=== PATIENT | male | born 1945 | race Caucasian/White ===

== ENCOUNTER → 2016-06-22 | Outpatient (REF) | payer MEDICARE, MEDICAID ==
[~2016-06-22] MED LIST: ALLO10TA PO; AMOX875T2 PO; ATEN25TA PO; ATEN50TA2 PO; BACITAB3 PO; CALC1TAB17 PO; CIPR-250 PO; CIPR500T3 PO; CIPR500T89 PO; DOCU100C PO; DULC10SU2 PR; ENEMENE3 PR; FLAG500T PO; FURO20TA2 PO; KLOR1TAB77 PO; LEVO100T5 PO; LEVO125T41 PO; MEGA40SU PO; MEGA625S PO; METR500T10 PO; MILKSUS PO; MIRT15TA3 PO; MULTCAP PO; OCUVTAB PO; OYST500T94 PO; POTA10CA PO; PRESCAP PO; SENN8.6T7 PO; SERO1TAB3 PO; TRIC145T PO; VITA100066 PO; VITA100072 PO; VITA2000 PO; VITMTA PO; WARF05TA PO; WARF4TAB52 PO; [UNRECOGNIZED DRUG - CODE] PO
[2016-06-22 13:03] LABS: CALCIUM LEVEL 8.5 MG/DL (8.8-10.2); CREATININE FOR GFR 1.39 MG/DL (0.70-1.30); GLOMERULAR FILTRATION RATE 53.5 (>42); POTASSIUM SERUM 3.7 MEQ/L (3.5-5.1)
== END ==
PROVIDERS: ATTEND Internal Medicine
DX: I50.9 Heart failure, unspecified (principal)

== ENCOUNTER → 2016-06-24 | Outpatient (CLI) | payer MEDICARE, MEDICAID ==
--- NOTE | 2016-06-24 18:12 | REP ---
CT abdomen and pelvis without contrast, 06/24/2016: Indication: Right upper quadrant pain. Comparison: CT abdomen and pelvis 06/17/2016 with IV contrast, 06/08/2016. Findings: There are bilateral pleural effusions, small on the right and small to moderate on the left. There is some bibasilar compressive atelectasis and right middle lobe with infiltrate, improved when compared with 06/08/2016. Liver, spleen and pancreas is normal. There are multiple stones within the gallbladder lumen. Gallbladder is contracted. There is no biliary dilatation. Adrenal glands are normal. Kidneys are without hydronephrosis. There is an exophytic 9 mm cyst off the posterior aspect of the left kidney. Cardiac silhouette is mildly enlarged. Diffuse atherosclerotic changes are noted in the aorta and iliac arteries. There are no pathologically enlarged retroperitoneal nodes. There is a supraumbilical hernia associated with diastases of the abdominal rectus muscles at the L3 level. There is diastases of the abdominis rectus muscles by 8.6 cm transverse dimension. Some anterior protrusion of the mid transverse colon into the area of stasis of the abdominis rectus muscles is noted , yet no obstruction. There has been previous right hemicolectomy with an ileocolic anastomosis in the right upper quadrant which is patent. Bladder is contracted. Prostate is not enlarged. There is no colonic obstruction. Previous inflammatory changes within the sigmoid colon are improved. However, there is some persistent linear scarring within the mesentery on image 98 series 201. Impression: Contracted gallbladder with cholelithiasis, not significantly changed. Diastases of the abdominis rectus muscles in the midline lower abdomen in the supraumbilical location. This is associated with some ventral protrusion of mid transverse colon, which is not obstructed. Prior right hemicolectomy. Patent ileocolic anastomosis. Previous inflammatory changes within the sigmoid colon are improved. There does remain some stranding/ inflammationi and/or scarring within the sigmoid mesentery on image 98, series 201. Persistent bilateral pleural effusions, small to moderate on the left, and small on right. Bibasilar atelectatic changes and/or infiltrate; right middle lobe infiltrate is improved. Signed by Elida Barber MD 06/28/2016 08:20 P
== END ==
LOC: M RAD 15:30
PROVIDERS: ATTEND Internal Medicine
DX: R10.31 Right lower quadrant pain (principal)

== ENCOUNTER 2016-06-26 14:48 | Emergency (ER) | payer MEDICARE, MEDICAID ==
[2016-06-26 15:32] LABS: BASO % 0.4 % (0.0-1.0); EOS # 0.2 K/mm3 (0.0-0.50); EOS % 1.7 % (0.0-3.0); LARGE UNSTAINED CELL # 0.4 K/mm3 (0.0-0.4); LARGE UNSTAINED CELL % 3.5 % (0.0-4.0); LYMPH # 1.2 K/mm3 (1.5-4.5); LYMPH % 12.4 % (24.0-44.0); MEAN CORPUSCULAR HEMOGLOBIN 32.9 pg (27.0-33.0); MEAN CORPUSCULAR HGB CONC 33.7 g/dl (32.0-36.5); MEAN CORPUSCULAR VOLUME 97.5 fl (80.0-96.0); MONO # 0.9 K/mm3 (0.0-0.8); NEUTROPHILS # 7.3 K/mm3 (1.8-7.7); NEUTROPHILS % 73.1 % (36.0-66.0); PLATELET COUNT, AUTOMATED 299 k/mm3 (150-450)
[2016-06-26 15:59] LABS: ALBUMIN/GLOBULIN RATIO 0.63 (1.00-1.93); BILIRUBIN,DIRECT 0.2 MG/DL (0.0-0.2); BILIRUBIN,TOTAL 0.8 MG/DL (0.2-1.0); CREATININE FOR GFR 1.48 MG/DL (0.70-1.30); GLOMERULAR FILTRATION RATE 49.7 (>42); POTASSIUM SERUM 3.8 MEQ/L (3.5-5.1); TOTAL PROTEIN 7.8 GM/DL (6.4-8.2)
[2016-06-26] MEDS ORDERED: CARVedilol 6.25 MG TAB As Ordered ONE (16:56)
--- NOTE | 2016-06-26 17:58 | EDDOCDS ---
Physician Documentation [facility] Name: Shahram King Age: 71 yrs Sex: Male : 1945 Arrival Date: 06/26/2016 Time: 14:48 Bed 10 Private MD: Salma Marquez E Disposition: 06/26 16:44 Critical Care: Critical care not applicable. pc Disposition: 06/26/16 17:06 Discharged to Home/Self Care. Impression: Cholelithiasis - without cholecystitis, Chronic atrial fibrillation - with RVR, on anticoagulant, not on rate control medication. - Condition is Stable. - Discharge Instructions: Cholelithiasis. - Prescriptions for Coreg 3.125 mg Oral Tablet - take 1 tablet by ORAL route every 12 hours with food; 30 tablet. No fatty, oily or greasy foods. A strict low fat diet is advised. - Medication Reconciliation, Local Pharmacy Hours form. - Follow up: Salma Marquez DO; When: 4 - 5 days; Reason: Recheck today's complaints, Continuance of care. Follow up: Timo Solano MD; When: Call to arrange an appointment; Reason: Recheck today's complaints, Continuance of care. - Problem is an ongoing problem. - Symptoms are unchanged. HPI: 15:15 This 71 yrs old Male presents to ER via Ambulance with complaints of pc Abdominal Pain. 15:15 The history is obtained from the patient, PCP. The patient presents with abdominal pc pain, in the right upper quadrant, right lower quadrant. The symptoms began recurrent over many months, with a recent US showing multiple gallstones and wall thickening, possible chronic cholecystitis. He was sent by his PCP for admission due to a lack of oral intake and recurrent pain. He has not had any fevers and is denying pain currently . The patient has been recently seen by Dr. Marquez. Historical: - Allergies: no known allergies; - Home Meds: 1. mirtazapine 15 mg Oral TbDL 1 tab nightly 2. Bacid 1 billion-250 cell-mg oral tab 1 cap twice a day 3. Vitamin D Oral 2000 unit twice a day 4. Oyster Shell Calcium 500 500 mg calcium (1,250 mg) Oral tab 1 tab twice a day 5. levothyroxine 125 mcg Oral cap 1 cap once daily 6. allopurinol 100 mg Oral tab 1 tab once daily 7. multivitamin Oral tab 1 tab daily 8. potassium chloride 10 mEq Oral cpER 1 cap once daily 9. Vitamin B-12 1,000 mcg Oral TbER daily 10. hyoscyamine sulfate 0.125 mg SL subl twice a day 11. Xarelto 20 mg oral tab 1 tab once daily 12. Flagyl 500 mg Oral tab 1 tab 3 times per day 13. Cipro 500 mg Oral tab 1 tab every 12 hours 14. furosemide 40 mg oral tab 1 tab once daily 15. megestrol 400 mg/10 mL (40 mg/mL) Oral susp 10 mL once daily 16. acetaminophen 325 mg Oral tab 2 tabs every 4 hours as needed 17. Milk of Magnesia Oral 10 mL as needed 18. Colace 100 mg oral cap 1 cap nightly 19. Dulcolax (bisacodyl) 10 mg Rectal supp 1 suppository once daily as needed - PMHx: Alcoholism; Atrial Fib; Bipolar disorder; CHF; CKD stage 3; Colitis; Dementia; Diverticulosis; GERD; hyperlipidemia; Hypertension; Hypothyroidism; - PSHx: Appendectomy; - The history from nurses notes was reviewed: and I agree with what is documented. - Social history: Smoking status: Patient states former smoker of tobacco. No barriers to communication noted, The patient speaks fluent Persian, Speaks appropriately for age. - Family history: Not pertinent. - : The pt / caregiver states he / she is on anticoagulants: Xarelto Home medication list is obtained from the facility AUG. - Hospitalizations: : No recent hospitalization is reported. - Exposure Risk Screening:: None identified. - Immunization history:: All immunizations up-to-date. - Social history:: the patient is a non-smoker, the patient formerly used alcohol. ROS: 15:15 All systems are negative except if listed. The constitutional, cardiovascular, pc respiratory and neurological components are also addressed in the HPI. Exam: 15:15 General Appearance: alert, no acute distress. pc 15:15 ENT: ear, nose and throat normal, pharynx normal. 15:15 Neck: The exam reveals no acute abnormalities. ROM is normal and painless. No nuchal rigidity is noted.. 15:15 Cardiovascular: normal heart sounds, equal and full pulses bilaterally, tachycardia, 105bpm, Rhythm is irregularly irregular. 15:15 Abdomen: soft, no organomegaly, normal bowel sounds, mild tenderness in the right upper quadrant. 15:15 Back: normal inspection. 15:15 Skin: skin color is normal, warm, dry. 15:15 Extremities: The extremities have a grossly normal appearance, are non-tender, without acute ROM abnormalities. 15:15 Neuro: oriented x 3, cranial nerves normal as tested, no motor deficits, no sensory deficits. 15:15 Psych: mood is normal. Vital Signs: 15:01 Pulse 128 MON; Pulse Ox 97% ; pml 15:01 BP 139 / 73 (auto/); pml 15:03 BP 158 / 87; Pulse 135; Resp 18; Temp 97.5(O); Pulse Ox 99% on R/A; Weight 78.47 kg / jrd 173 lbs (R); Height 65 in. (165.10 cm) (R); Pain 0/10; 15:31 Pulse 128 MON; Pulse Ox 97% ; pml 15:31 BP 130 / 67 (auto/); pml 16:01 Pulse 124 MON; Pulse Ox 97% ; pml 16:01 BP 114 / 61 (auto/); pml 16:31 Pulse 126 MON; Pulse Ox 97% ; pml 16:31 BP 101 / 58 (auto/); pml 17:50 BP 116 / 62; Pulse 126; Resp 18; Temp 97.5; Pulse Ox 96% ; Pain 0/10; pml 15:03 Body Mass Index 28.79 (78.47 kg, 165.10 cm) jrd MDM: 15:12 IV Saline Lock ordered. pc 15:13 CBC with Diff Ordered. EDMS 15:13 MED Profile Ordered. EDMS 15:13 Liver Profile Ordered. EDMS 15:13 Lipase Ordered. EDMS 15:15 Differential diagnosis: acute v chronic cholecystitis; alcoholism; Bipolar disorder. pc Plan: labs. 16:01 CBC with Diff Reviewed. pc 16:01 MED Profile Reviewed. pc 16:01 Liver Profile Reviewed. pc 16:01 Lipase Reviewed. pc 16:06 Data reviewed: old medical records, vital signs, nurses notes, lab test results, all pc radiology studies and available results. Test interpretation: LAB - all labs as ordered have been reviewed, interpreted and considered in the overall management of the clinical presentation;. The patient has been re-examined and re-evaluated. The clinical presentation did not require any ED treatment or interventions. ED course: He does not have a fever, does not have pain on repeat examination, has no WBC count elevation and his LFTs are normal. He does not require admission. The patient was sent for admission, as such, the Hospitalist service will be consulted, as they would be the ones to admit Dr. Marquez' patients. . 16:06 Physician consultation: Dr. Mt Sahni DO was contacted at 16:09, regarding consult.pc 16:40 carvedilol 3.125 mg PO once ordered. pc 16:41 Metoprolol 5 mg IVP every 5 minutes; Hold for SBP < 100 or HR < 60. x3 ordered. pc 16:44 ED course: Dr. Sahni evaluated the patient and has discussed the case with Dr. marcie Solano. He advises discharge home, an out-patient HIDA scan and follow up at his office. Disposition: The historical points, examination findings, and any diagnostic results supporting the provided diagnosis, were discussed with the patient or legal guardian. The need for outpatient follow up with the provider listed on their discharge instructions was discussed. They were encouraged to return to [facility], or the nearest ED, if symptoms worsen/persist, or for any other questions/concerns. 16:44 ED course: He is AFib with RVR. He is anticoagulated but is not on any rate control meds. He was on atenolol all of last year, as noted by his EMR. He was on atenolol at the end of January when discharged from [facility]. No other records on his EMR shows him to be still on it or why it was stopped. Dr. Sahni has advised Coreg at the dose administered . 16:53 Financial registration complete. zo 16:55 [facility] Payment Agreement was scanned into [employer] and attached to record. zo Administered Medications: 16:55 Not Given (Physician Discretion): Metoprolol 5 mg IVP every 5 minutes; Hold for SBP < pml 100 or HR < 60. x3 17:00 Drug: carvedilol 3.125 mg Route: PO; pml Signatures: Dispatcher [employer] EDMS Jose Raul Easton MD MD pc Olin, Zoeann zo Quay, Paulina, RN RN pml The chart was reviewed and I authenticate all verbal orders and agree with the evaluation and treatment provided.Attachments: 16:55 [facility] Payment Agreement zo MTDD
--- NOTE | 2016-06-26 17:58 | EDDOCDS ---
Nurse's Notes [facility] Name: Shahram King Age: 71 yrs Sex: Male : 1945 Arrival Date: 06/26/2016 Time: 14:48 Bed 10 Private MD: Salma Marquez E Diagnosis: Cholelithiasis-without cholecystitis;Chronic atrial fibrillation-with RVR, on anticoagulant, not on rate control medication Presentation: 06/26 14:56 Presenting complaint: EMS states: sent for eval by [facility] for positive finding on gall pml bladder ultrasound today. pt denies pain. Adult Sepsis Screening: The patient does not have new or worsening altered mentation. Patient's respiratory rate is less than 22. Systolic blood pressure is greater than 100. Patient has a qSOFA score of 0- Negative Sepsis Screen. Suicide/Homicide risk assessment- the patient denies having any suicidal and/or homicidal ideations and does not present with any other emotional, behavioral or mental health complaints. Status: Patient is not a cash register servicer or dependent. Transition of care: patient was not received from another setting of care. 14:56 Acuity: BARBIE Level 3 pml 14:56 Method Of Arrival: Ambulance pml Triage Assessment: 15:01 General: Appears in no apparent distress, comfortable, Behavior is appropriate for age, pml cooperative. Pain: Denies pain. The patient is triaged at the bedside. See Assessment in Nurses Notes section of ED record. Neurological: Level of Consciousness is awake, alert, Oriented to person, place, time. Cardiovascular: Capillary refill < 3 seconds. Respiratory: Airway is patent Respiratory effort is even, unlabored. GI: Abdomen is non- distended Abd is soft X 4 quads Guarding noted in right upper quadrant. Derm: Skin is pink, warm & dry. Historical: - Allergies: no known allergies; - Home Meds: 1. mirtazapine 15 mg Oral TbDL 1 tab nightly 2. Bacid 1 billion-250 cell-mg oral tab 1 cap twice a day 3. Vitamin D Oral 2000 unit twice a day 4. Oyster Shell Calcium 500 500 mg calcium (1,250 mg) Oral tab 1 tab twice a day 5. levothyroxine 125 mcg Oral cap 1 cap once daily 6. allopurinol 100 mg Oral tab 1 tab once daily 7. multivitamin Oral tab 1 tab daily 8. potassium chloride 10 mEq Oral cpER 1 cap once daily 9. Vitamin B-12 1,000 mcg Oral TbER daily 10. hyoscyamine sulfate 0.125 mg SL subl twice a day 11. Xarelto 20 mg oral tab 1 tab once daily 12. Flagyl 500 mg Oral tab 1 tab 3 times per day 13. Cipro 500 mg Oral tab 1 tab every 12 hours 14. furosemide 40 mg oral tab 1 tab once daily 15. megestrol 400 mg/10 mL (40 mg/mL) Oral susp 10 mL once daily 16. acetaminophen 325 mg Oral tab 2 tabs every 4 hours as needed 17. Milk of Magnesia Oral 10 mL as needed 18. Colace 100 mg oral cap 1 cap nightly 19. Dulcolax (bisacodyl) 10 mg Rectal supp 1 suppository once daily as needed - PMHx: Alcoholism; Atrial Fib; Bipolar disorder; CHF; CKD stage 3; Colitis; Dementia; Diverticulosis; GERD; hyperlipidemia; Hypertension; Hypothyroidism; - PSHx: Appendectomy; - The history from nurses notes was reviewed: and I agree with what is documented. - Social history: Smoking status: Patient states former smoker of tobacco. No barriers to communication noted, The patient speaks fluent Vietnamese, Speaks appropriately for age. - Family history: Not pertinent. - : The pt / caregiver states he / she is on anticoagulants: Xarelto Home medication list is obtained from the facility AUG. - Hospitalizations: : No recent hospitalization is reported. - Exposure Risk Screening:: None identified. - Immunization history:: All immunizations up-to-date. - Social history:: the patient is a non-smoker, the patient formerly used alcohol. Screenin:03 Screening information is obtained from the patient. Fall risk: No risks identified. pml Assistance ADL's: requires no assistance with activities of daily living. Abuse/DV Screen: The patient / caregiver reports he/she is: not in a situation that causes fear, pain or injury. Nutritional screening: No deficits noted. Advance Directives: Currently, there is a health care proxy, son. home support is adequate. Assessment: 15:03 General: see triage note. pml 16:20 General: Appears in no apparent distress, Behavior is appropriate for age, cooperative. pml Pain: Denies pain. Neurological: Level of Consciousness is awake, alert, Oriented to person, place, time. Cardiovascular: Capillary refill < 3 seconds. Respiratory: Airway is patent Respiratory effort is even, unlabored. GI: Abdomen is non- distended Bowel sounds present X 4 quads. Derm: Skin is pink, warm & dry. 17:49 General: Appears in no apparent distress, comfortable, Behavior is appropriate for age, pml cooperative. Pain: Denies pain. Neurological: Level of Consciousness is awake, alert, Oriented to person, place, time. Cardiovascular: Capillary refill < 3 seconds. Respiratory: Airway is patent Respiratory effort is even, unlabored. GI: Abdomen is non- distended. Derm: Skin is pink, warm & dry. Vital Signs: 15:01 Pulse 128 MON; Pulse Ox 97% ; pml 15:01 BP 139 / 73 (auto/); pml 15:03 BP 158 / 87; Pulse 135; Resp 18; Temp 97.5(O); Pulse Ox 99% on R/A; Weight 78.47 kg jrd (R); Height 65 in. (165.10 cm) (R); Pain 0/10; 15:31 Pulse 128 MON; Pulse Ox 97% ; pml 15:31 BP 130 / 67 (auto/); pml 16:01 Pulse 124 MON; Pulse Ox 97% ; pml 16:01 BP 114 / 61 (auto/); pml 16:31 Pulse 126 MON; Pulse Ox 97% ; pml 16:31 BP 101 / 58 (auto/); pml 17:50 BP 116 / 62; Pulse 126; Resp 18; Temp 97.5; Pulse Ox 96% ; Pain 0/10; pml 15:03 Body Mass Index 28.79 (78.47 kg, 165.10 cm) [facility] Vitals: 15:01 Log In Time N/A - ambulance arrival. pml ED Course: 14:49 Patient visited by Elma Jorgensen, Ward Assistant. lbd 14:49 Salam Marquez is Private Physician. lbd 14:49 Patient moved to Waiting lbd 14:49 Patient moved to 10 lbd 14:57 Triage Initiated pml 15:03 The patient / caregiver is instructed regarding the plan of care and ED course. Patient pml has correct armband on for positive identification. Bed in low position. Call light in reach. 15:04 Patient visited by Rico Wagner PCA. jrd 15:06 Patient visited by Sapphire Bird RN. pml 15:09 Patient visited by Sapphire Bird RN. pml 15:11 Jose Raul Easton MD is Attending Physician. pc 15:11 Patient visited by Jose Raul Easton MD. pc 15:21 Patient visited by Sapphire Bird RN. pml 15:21 Inserted peripheral IV: 20gauge IV in left antecubital area and blood collected. pml Patient tolerated the procedure well. 16:37 Patient visited by Sapphire Bird RN. pml 16:55 [facility] Payment Agreement was scanned into [employer] and attached to record. zo 17:05 Salma Marquez DO is Referral Physician. pc 17:05 Timo Solano MD is Referral Physician. pc 17:50 Discontinued lock intact, bleeding controlled, pressure dressing applied, No pml redness/swelling at site. No procedures done that require assistance. Administered Medications: 16:55 Not Given (Physician Discretion): Metoprolol 5 mg IVP every 5 minutes; Hold for SBP < pml 100 or HR < 60. x3 17:00 Drug: carvedilol 3.125 mg Route: PO; [facility] Order Results: Lab Order: CBC with Diff; SPEC'M 06/26/16 15:19 Test: WHITE BLOOD COUNT; Value: 10.0; Range: 4.0-10.0; Units: K/mm3; Status: F Test: RED BLOOD COUNT; Value: 4.74; Range: 4.30-6.10; Units: M/mm3; Status: F Test: HEMOGLOBIN; Value: 15.6; Range: 14.0-18.0; Units: g/dl; Status: F Test: HEMATOCRIT; Value: 46.2; Range: 42.0-52.0; Units: %; Status: F Test: MEAN CORPUSCULAR VOLUME; Value: 97.5; Range: 80.0-96.0; Abnormal: Above high normal; Units: fl; Status: F Test: MEAN CORPUSCULAR HEMOGLOBIN; Value: 32.9; Range: 27.0-33.0; Units: pg; Status: F Test: MEAN CORPUSCULAR HGB CONC; Value: 33.7; Range: 32.0-36.5; Units: g/dl; Status: F Test: RED CELL DISTRIBUTION WIDTH; Value: 14.0; Range: 11.5-14.5; Units: %; Status: F Test: PLATELET COUNT, AUTOMATED; Value: 299; Range: 150-450; Units: k/mm3; Status: F Test: NEUTROPHILS %; Value: 73.1; Range: 36.0-66.0; Abnormal: Above high normal; Units: %; Status: F Test: LYMPH %; Value: 12.4; Range: 24.0-44.0; Abnormal: Below low normal; Units: %; Status: F Test: MONO %; Value: 9.0; Range: 0.0-5.0; Abnormal: Above high normal; Units: %; Status: F Test: EOS %; Value: 1.7; Range: 0.0-3.0; Units: %; Status: F Test: BASO %; Value: 0.4; Range: 0.0-1.0; Units: %; Status: F Test: LARGE UNSTAINED CELL %; Value: 3.5; Range: 0.0-4.0; Units: %; Status: F Test: NEUTROPHILS #; Value: 7.3; Range: 1.8-7.7; Units: K/mm3; Status: F Test: LYMPH #; Value: 1.2; Range: 1.5-4.5; Abnormal: Below low normal; Units: K/mm3; Status: F Test: MONO #; Value: 0.9; Range: 0.0-0.8; Abnormal: Above high normal; Units: K/mm3; Status: F Test: EOS #; Value: 0.2; Range: 0.0-0.50; Units: K/mm3; Status: F Test: BASO #; Value: 0.0; Range: 0.0-0.2; Units: K/mm3; Status: F Test: LARGE UNSTAINED CELL #; Value: 0.4; Range: 0.0-0.4; Units: K/mm3; Status: F Lab Order: MED Profile; SPEC'M 06/26/16 15:19 Test: GLUCOSE, FASTING; Value: 129; Range: 83-110; Abnormal: Above high normal; Units: MG/DL; Status: F Test: BLOOD UREA NITROGEN; Value: 11; Range: 7-18; Units: MG/DL; Status: F Test: CREATININE FOR GFR; Value: 1.48; Range: 0.70-1.30; Abnormal: Above high normal; Units: MG/DL; Status: F Test: GLOMERULAR FILTRATION RATE; Value: 49.7; Range: >42; Status: F Test: SODIUM LEVEL; Value: 138; Range: 136-145; Units: MEQ/L; Status: F Test: POTASSIUM SERUM; Value: 3.8; Range: 3.5-5.1; Units: MEQ/L; Status: F Test: CHLORIDE LEVEL; Value: 104; Range: 98-107; Units: MEQ/L; Status: F Test: CARBON DIOXIDE LEVEL; Value: 21; Range: 21-32; Units: MEQ/L; Status: F Test: ANION GAP; Value: 13; Range: 8-16; Units: MEQ/L; Status: F Test: CALCIUM LEVEL; Value: 9.0; Range: 8.8-10.2; Units: MG/DL; Status: F Test Note: ; Units are mL/min/1.73 m2 Chronic Kidney Disease Staging per NKF: Stage I & II GFR >=60 Normal to Mildly Decreased Stage III GFR 30-59 Moderately Decreased Stage IV GFR 15-29 Severely Decreased Stage V GFR <15 Very Little GFR Left ESRD GFR <15 on UNIT AIDE Lab Order: Liver Profile; DASHAWN'Viviana 06/26/16 15:19 Test: AST/SGOT; Value: 26; Range: 15-37; Units: U/L; Status: F Test: ALT/SGPT; Value: 16; Range: 12-78; Units: U/L; Status: F Test: ALKALINE PHOSPHATASE; Value: 54; Range: 45-117; Units: U/L; Status: F Test: BILIRUBIN,TOTAL; Value: 0.8; Range: 0.2-1.0; Units: MG/DL; Status: F Test: BILIRUBIN,DIRECT; Value: 0.2; Range: 0.0-0.2; Units: MG/DL; Status: F Test: TOTAL PROTEIN; Value: 7.8; Range: 6.4-8.2; Units: GM/DL; Status: F Test: ALBUMIN; Value: 3.0; Range: 3.2-5.2; Abnormal: Below low normal; Units: GM/DL; Status: F Test: ALBUMIN/GLOBULIN RATIO; Value: 0.63; Range: 1.00-1.93; Abnormal: Below low normal; Status: F Lab Order: Lipase; SPEC'M 06/26/16 15:19 Test: LIPASE; Value: 157; Range: 73-393; Units: U/L; Status: F Outcome: 17:06 Discharge ordered by Provider. 17:50 Discharge Assessment: Patient awake, alert and oriented x 3. No cognitive and/or pml functional deficits noted. Patient verbalized understanding of disposition instructions. patient administered narcotics - no. The following High Risk Discharge criteria are identified: None. Discharged to senior care. 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 Condition: stable. Discharge instructions given to senior care, Instructed on discharge instructions, follow up and referral plans. medication usage, Demonstrated understanding of instructions, medications, Pt was receptive of discharge instructions/ teaching. Prescriptions given X 1. No special radiology studies were completed. Property sent home with patient. 17:56 Patient left the ED. pml Signatures: Jose Raul Easton MD MD pc Elma Jorgensne, Ward Assistant Unit lbd Sharona Flores Paulina,RN RN pml Rico Wagner, PROCESS DESIGN ENGINEER PROCESS DESIGN ENGINEER jrd Corrections: (The following items were deleted from the chart) 15:09 15:03 Advance Directives: Currently, there is no health care proxy. pml pml MTDD
--- NOTE | 2016-06-30 09:36 | EDDOCDS ---
Physician Documentation [facility] Name: Shahram King Age: 71 yrs Sex: Male : 1945 Arrival Date: 06/26/2016 Time: 14:48 Bed 10 Private MD: Salma Marquez E Disposition: 06/26 16:44 Critical Care: Critical care not applicable. pc Disposition: 06/26/16 17:06 Discharged to Home/Self Care. Impression: Cholelithiasis - without cholecystitis, Chronic atrial fibrillation - with RVR, on anticoagulant, not on rate control medication. - Condition is Stable. - Discharge Instructions: Cholelithiasis. - Prescriptions for Coreg 3.125 mg Oral Tablet - take 1 tablet by ORAL route every 12 hours with food; 30 tablet. No fatty, oily or greasy foods. A strict low fat diet is advised. - Medication Reconciliation, Local Pharmacy Hours form. - Follow up: Salma Marquez DO; When: 4 - 5 days; Reason: Recheck today's complaints, Continuance of care. Follow up: Timo Solano MD; When: Call to arrange an appointment; Reason: Recheck today's complaints, Continuance of care. - Problem is an ongoing problem. - Symptoms are unchanged. HPI: 15:15 This 71 yrs old Male presents to ER via Ambulance with complaints of pc Abdominal Pain. 15:15 The history is obtained from the patient, PCP. The patient presents with abdominal pc pain, in the right upper quadrant, right lower quadrant. The symptoms began recurrent over many months, with a recent US showing multiple gallstones and wall thickening, possible chronic cholecystitis. He was sent by his PCP for admission due to a lack of oral intake and recurrent pain. He has not had any fevers and is denying pain currently . The patient has been recently seen by Dr. Marquez. Historical: - Allergies: no known allergies; - Home Meds: 1. mirtazapine 15 mg Oral TbDL 1 tab nightly 2. Bacid 1 billion-250 cell-mg oral tab 1 cap twice a day 3. Vitamin D Oral 2000 unit twice a day 4. Oyster Shell Calcium 500 500 mg calcium (1,250 mg) Oral tab 1 tab twice a day 5. levothyroxine 125 mcg Oral cap 1 cap once daily 6. allopurinol 100 mg Oral tab 1 tab once daily 7. multivitamin Oral tab 1 tab daily 8. potassium chloride 10 mEq Oral cpER 1 cap once daily 9. Vitamin B-12 1,000 mcg Oral TbER daily 10. hyoscyamine sulfate 0.125 mg SL subl twice a day 11. Xarelto 20 mg oral tab 1 tab once daily 12. Flagyl 500 mg Oral tab 1 tab 3 times per day 13. Cipro 500 mg Oral tab 1 tab every 12 hours 14. furosemide 40 mg oral tab 1 tab once daily 15. megestrol 400 mg/10 mL (40 mg/mL) Oral susp 10 mL once daily 16. acetaminophen 325 mg Oral tab 2 tabs every 4 hours as needed 17. Milk of Magnesia Oral 10 mL as needed 18. Colace 100 mg oral cap 1 cap nightly 19. Dulcolax (bisacodyl) 10 mg Rectal supp 1 suppository once daily as needed - PMHx: Alcoholism; Atrial Fib; Bipolar disorder; CHF; CKD stage 3; Colitis; Dementia; Diverticulosis; GERD; hyperlipidemia; Hypertension; Hypothyroidism; - PSHx: Appendectomy; - The history from nurses notes was reviewed: and I agree with what is documented. - Social history: Smoking status: Patient states former smoker of tobacco. No barriers to communication noted, The patient speaks fluent Turkmen, Speaks appropriately for age. - Family history: Not pertinent. - : The pt / caregiver states he / she is on anticoagulants: Xarelto Home medication list is obtained from the facility [facility]. - Hospitalizations: : No recent hospitalization is reported. - Exposure Risk Screening:: None identified. - Immunization history:: All immunizations up-to-date. - Social history:: the patient is a non-smoker, the patient formerly used alcohol. ROS: 15:15 All systems are negative except if listed. The constitutional, cardiovascular, pc respiratory and neurological components are also addressed in the HPI. Exam: 15:15 General Appearance: alert, no acute distress. pc 15:15 ENT: ear, nose and throat normal, pharynx normal. 15:15 Neck: The exam reveals no acute abnormalities. ROM is normal and painless. No nuchal rigidity is noted.. 15:15 Cardiovascular: normal heart sounds, equal and full pulses bilaterally, tachycardia, 105bpm, Rhythm is irregularly irregular. 15:15 Abdomen: soft, no organomegaly, normal bowel sounds, mild tenderness in the right upper quadrant. 15:15 Back: normal inspection. 15:15 Skin: skin color is normal, warm, dry. 15:15 Extremities: The extremities have a grossly normal appearance, are non-tender, without acute ROM abnormalities. 15:15 Neuro: oriented x 3, cranial nerves normal as tested, no motor deficits, no sensory deficits. 15:15 Psych: mood is normal. Vital Signs: 15:01 Pulse 128 MON; Pulse Ox 97% ; pml 15:01 BP 139 / 73 (auto/); pml 15:03 BP 158 / 87; Pulse 135; Resp 18; Temp 97.5(O); Pulse Ox 99% on R/A; Weight 78.47 kg / jrd 173 lbs (R); Height 65 in. (165.10 cm) (R); Pain 0/10; 15:31 Pulse 128 MON; Pulse Ox 97% ; pml 15:31 BP 130 / 67 (auto/); pml 16:01 Pulse 124 MON; Pulse Ox 97% ; pml 16:01 BP 114 / 61 (auto/); pml 16:31 Pulse 126 MON; Pulse Ox 97% ; pml 16:31 BP 101 / 58 (auto/); pml 17:50 BP 116 / 62; Pulse 126; Resp 18; Temp 97.5; Pulse Ox 96% ; Pain 0/10; pml 15:03 Body Mass Index 28.79 (78.47 kg, 165.10 cm) jrd MDM: 15:12 IV Saline Lock ordered. pc 15:13 CBC with Diff Ordered. EDMS 15:13 MED Profile Ordered. EDMS 15:13 Liver Profile Ordered. EDMS 15:13 Lipase Ordered. EDMS 15:15 Differential diagnosis: acute v chronic cholecystitis; alcoholism; Bipolar disorder. pc Plan: labs. 16:01 CBC with Diff Reviewed. pc 16:01 MED Profile Reviewed. pc 16:01 Liver Profile Reviewed. pc 16:01 Lipase Reviewed. pc 16:06 Data reviewed: old medical records, vital signs, nurses notes, lab test results, all pc radiology studies and available results. Test interpretation: LAB - all labs as ordered have been reviewed, interpreted and considered in the overall management of the clinical presentation;. The patient has been re-examined and re-evaluated. The clinical presentation did not require any ED treatment or interventions. ED course: He does not have a fever, does not have pain on repeat examination, has no WBC count elevation and his LFTs are normal. He does not require admission. The patient was sent for admission, as such, the Hospitalist service will be consulted, as they would be the ones to admit Dr. Marquez' patients. . 16:06 Physician consultation: Dr. Mt Sahni DO was contacted at 16:09, regarding consult.pc 16:40 carvedilol 3.125 mg PO once ordered. pc 16:41 Metoprolol 5 mg IVP every 5 minutes; Hold for SBP < 100 or HR < 60. x3 ordered. pc 16:44 ED course: Dr. Sahni evaluated the patient and has discussed the case with Dr. marcie Solano. He advises discharge home, an out-patient HIDA scan and follow up at his office. Disposition: The historical points, examination findings, and any diagnostic results supporting the provided diagnosis, were discussed with the patient or legal guardian. The need for outpatient follow up with the provider listed on their discharge instructions was discussed. They were encouraged to return to [facility], or the nearest ED, if symptoms worsen/persist, or for any other questions/concerns. 16:44 ED course: He is AFib with RVR. He is anticoagulated but is not on any rate control pc meds. He was on atenolol all of last year, as noted by his EMR. He was on atenolol at the end of January when discharged from [facility]. No other records on his EMR shows him to be still on it or why it was stopped. Dr. Sahni has advised Coreg at the dose administered . 16:53 Financial registration complete. zo 16:55 [facility] [place] Agreement was scanned into [employer] and attached to record. zo 06/27 11:39 Other: PROGRESS NOTE was scanned into [employer] and attached to record. gb Administered Medications: 06/26 16:55 Not Given (Physician Discretion): Metoprolol 5 mg IVP every 5 minutes; Hold for SBP < pml 100 or HR < 60. x3 17:00 Drug: carvedilol 3.125 mg Route: PO; pml Signatures: Dispatcher [employer] EDMS Jose Raul Easton MD MD pc Barnhardt, Gloria, Sharona Rendon Paulina, RN RN pml The chart was reviewed and I authenticate all verbal orders and agree with the evaluation and treatment provided.Attachments: 16:55 [facility] Payment Agreement zo Chart Complete MTDD
--- NOTE | 2016-06-30 09:36 | EDDOCDS ---
Physician Documentation [facility] Name: Shahram King Age: 71 yrs Sex: Male : 1945 Arrival Date: 06/26/2016 Time: 14:48 Bed 10 Private MD: Salma Marquez E Disposition: 06/26 16:44 Critical Care: Critical care not applicable. pc Disposition: 06/26/16 17:06 Discharged to Home/Self Care. Impression: Cholelithiasis - without cholecystitis, Chronic atrial fibrillation - with RVR, on anticoagulant, not on rate control medication. - Condition is Stable. - Discharge Instructions: Cholelithiasis. - Prescriptions for Coreg 3.125 mg Oral Tablet - take 1 tablet by ORAL route every 12 hours with food; 30 tablet. No fatty, oily or greasy foods. A strict low fat diet is advised. - Medication Reconciliation, Local Pharmacy Hours form. - Follow up: Salma Marquez DO; When: 4 - 5 days; Reason: Recheck today's complaints, Continuance of care. Follow up: Timo Solano MD; When: Call to arrange an appointment; Reason: Recheck today's complaints, Continuance of care. - Problem is an ongoing problem. - Symptoms are unchanged. HPI: 15:15 This 71 yrs old Male presents to ER via Ambulance with complaints of pc Abdominal Pain. 15:15 The history is obtained from the patient, PCP. The patient presents with abdominal pc pain, in the right upper quadrant, right lower quadrant. The symptoms began recurrent over many months, with a recent US showing multiple gallstones and wall thickening, possible chronic cholecystitis. He was sent by his PCP for admission due to a lack of oral intake and recurrent pain. He has not had any fevers and is denying pain currently . The patient has been recently seen by Dr. Marquez. Historical: - Allergies: no known allergies; - Home Meds: 1. mirtazapine 15 mg Oral TbDL 1 tab nightly 2. Bacid 1 billion-250 cell-mg oral tab 1 cap twice a day 3. Vitamin D Oral 2000 unit twice a day 4. Oyster Shell Calcium 500 500 mg calcium (1,250 mg) Oral tab 1 tab twice a day 5. levothyroxine 125 mcg Oral cap 1 cap once daily 6. allopurinol 100 mg Oral tab 1 tab once daily 7. multivitamin Oral tab 1 tab daily 8. potassium chloride 10 mEq Oral cpER 1 cap once daily 9. Vitamin B-12 1,000 mcg Oral TbER daily 10. hyoscyamine sulfate 0.125 mg SL subl twice a day 11. Xarelto 20 mg oral tab 1 tab once daily 12. Flagyl 500 mg Oral tab 1 tab 3 times per day 13. Cipro 500 mg Oral tab 1 tab every 12 hours 14. furosemide 40 mg oral tab 1 tab once daily 15. megestrol 400 mg/10 mL (40 mg/mL) Oral susp 10 mL once daily 16. acetaminophen 325 mg Oral tab 2 tabs every 4 hours as needed 17. Milk of Magnesia Oral 10 mL as needed 18. Colace 100 mg oral cap 1 cap nightly 19. Dulcolax (bisacodyl) 10 mg Rectal supp 1 suppository once daily as needed - PMHx: Alcoholism; Atrial Fib; Bipolar disorder; CHF; CKD stage 3; Colitis; Dementia; Diverticulosis; GERD; hyperlipidemia; Hypertension; Hypothyroidism; - PSHx: Appendectomy; - The history from nurses notes was reviewed: and I agree with what is documented. - Social history: Smoking status: Patient states former smoker of tobacco. No barriers to communication noted, The patient speaks fluent Korean, Speaks appropriately for age. - Family history: Not pertinent. - : The pt / caregiver states he / she is on anticoagulants: Xarelto Home medication list is obtained from the facility [facility]. - Hospitalizations: : No recent hospitalization is reported. - Exposure Risk Screening:: None identified. - Immunization history:: All immunizations up-to-date. - Social history:: the patient is a non-smoker, the patient formerly used alcohol. ROS: 15:15 All systems are negative except if listed. The constitutional, cardiovascular, pc respiratory and neurological components are also addressed in the HPI. Exam: 15:15 General Appearance: alert, no acute distress. pc 15:15 ENT: ear, nose and throat normal, pharynx normal. 15:15 Neck: The exam reveals no acute abnormalities. ROM is normal and painless. No nuchal rigidity is noted.. 15:15 Cardiovascular: normal heart sounds, equal and full pulses bilaterally, tachycardia, 105bpm, Rhythm is irregularly irregular. 15:15 Abdomen: soft, no organomegaly, normal bowel sounds, mild tenderness in the right upper quadrant. 15:15 Back: normal inspection. 15:15 Skin: skin color is normal, warm, dry. 15:15 Extremities: The extremities have a grossly normal appearance, are non-tender, without acute ROM abnormalities. 15:15 Neuro: oriented x 3, cranial nerves normal as tested, no motor deficits, no sensory deficits. 15:15 Psych: mood is normal. Vital Signs: 15:01 Pulse 128 MON; Pulse Ox 97% ; pml 15:01 BP 139 / 73 (auto/); pml 15:03 BP 158 / 87; Pulse 135; Resp 18; Temp 97.5(O); Pulse Ox 99% on R/A; Weight 78.47 kg / jrd 173 lbs (R); Height 65 in. (165.10 cm) (R); Pain 0/10; 15:31 Pulse 128 MON; Pulse Ox 97% ; pml 15:31 BP 130 / 67 (auto/); pml 16:01 Pulse 124 MON; Pulse Ox 97% ; pml 16:01 BP 114 / 61 (auto/); pml 16:31 Pulse 126 MON; Pulse Ox 97% ; pml 16:31 BP 101 / 58 (auto/); pml 17:50 BP 116 / 62; Pulse 126; Resp 18; Temp 97.5; Pulse Ox 96% ; Pain 0/10; pml 15:03 Body Mass Index 28.79 (78.47 kg, 165.10 cm) jrd MDM: 15:12 IV Saline Lock ordered. pc 15:13 CBC with Diff Ordered. EDMS 15:13 MED Profile Ordered. EDMS 15:13 Liver Profile Ordered. EDMS 15:13 Lipase Ordered. EDMS 15:15 Differential diagnosis: acute v chronic cholecystitis; alcoholism; Bipolar disorder. pc Plan: labs. 16:01 CBC with Diff Reviewed. pc 16:01 MED Profile Reviewed. pc 16:01 Liver Profile Reviewed. pc 16:01 Lipase Reviewed. pc 16:06 Data reviewed: old medical records, vital signs, nurses notes, lab test results, all pc radiology studies and available results. Test interpretation: LAB - all labs as ordered have been reviewed, interpreted and considered in the overall management of the clinical presentation;. The patient has been re-examined and re-evaluated. The clinical presentation did not require any ED treatment or interventions. ED course: He does not have a fever, does not have pain on repeat examination, has no WBC count elevation and his LFTs are normal. He does not require admission. The patient was sent for admission, as such, the Hospitalist service will be consulted, as they would be the ones to admit Dr. Marquez' patients. . 16:06 Physician consultation: Dr. Mt Sahni DO was contacted at 16:09, regarding consult.pc 16:40 carvedilol 3.125 mg PO once ordered. pc 16:41 Metoprolol 5 mg IVP every 5 minutes; Hold for SBP < 100 or HR < 60. x3 ordered. pc 16:44 ED course: Dr. Sahni evaluated the patient and has discussed the case with Dr. marcie Solano. He advises discharge home, an out-patient HIDA scan and follow up at his office. Disposition: The historical points, examination findings, and any diagnostic results supporting the provided diagnosis, were discussed with the patient or legal guardian. The need for outpatient follow up with the provider listed on their discharge instructions was discussed. They were encouraged to return to [facility], or the nearest ED, if symptoms worsen/persist, or for any other questions/concerns. 16:44 ED course: He is AFib with RVR. He is anticoagulated but is not on any rate control pc meds. He was on atenolol all of last year, as noted by his EMR. He was on atenolol at the end of January when discharged from [facility]. No other records on his EMR shows him to be still on it or why it was stopped. Dr. Sahni has advised Coreg at the dose administered . 16:53 Financial registration complete. zo 16:55 [facility] [place] was scanned into [employer] and attached to record. zo 06/27 11:39 Other: PROGRESS NOTE was scanned into [employer] and attached to record. gb Administered Medications: 06/26 16:55 Not Given (Physician Discretion): Metoprolol 5 mg IVP every 5 minutes; Hold for SBP < pml 100 or HR < 60. x3 17:00 Drug: carvedilol 3.125 mg Route: PO; pml Signatures: Dispatcher [employer] EDMS Jose Raul Easton MD MD pc Barnhardt, Gloria, Sharona Rendon Paulina, RN RN pml The chart was reviewed and I authenticate all verbal orders and agree with the evaluation and treatment provided.Attachments: 16:55 [facility] Payment Agreement zo Chart Complete MTDD
--- NOTE | 2016-06-30 09:36 | EDDOCDS ---
Nurse's Notes [facility] Name: Shahram King Age: 71 yrs Sex: Male : 1945 Arrival Date: 06/26/2016 Time: 14:48 Bed 10 Private MD: Salma Maruqez E Diagnosis: Cholelithiasis-without cholecystitis;Chronic atrial fibrillation-with RVR, on anticoagulant, not on rate control medication Presentation: 06/26 14:56 Presenting complaint: EMS states: sent for eval by [facility] for positive finding on gall pml bladder ultrasound today. pt denies pain. Adult Sepsis Screening: The patient does not have new or worsening altered mentation. Patient's respiratory rate is less than 22. Systolic blood pressure is greater than 100. Patient has a qSOFA score of 0- Negative Sepsis Screen. Suicide/Homicide risk assessment- the patient denies having any suicidal and/or homicidal ideations and does not present with any other emotional, behavioral or mental health complaints. Status: Patient is not a field services director or dependent. Transition of care: patient was not received from another setting of care. 14:56 Acuity: BARBIE Level 3 pml 14:56 Method Of Arrival: Ambulance pml Triage Assessment: 15:01 General: Appears in no apparent distress, comfortable, Behavior is appropriate for age, pml cooperative. Pain: Denies pain. The patient is triaged at the bedside. See Assessment in Nurses Notes section of ED record. Neurological: Level of Consciousness is awake, alert, Oriented to person, place, time. Cardiovascular: Capillary refill < 3 seconds. Respiratory: Airway is patent Respiratory effort is even, unlabored. GI: Abdomen is non- distended Abd is soft X 4 quads Guarding noted in right upper quadrant. Derm: Skin is pink, warm & dry. Historical: - Allergies: no known allergies; - Home Meds: 1. mirtazapine 15 mg Oral TbDL 1 tab nightly 2. Bacid 1 billion-250 cell-mg oral tab 1 cap twice a day 3. Vitamin D Oral 2000 unit twice a day 4. Oyster Shell Calcium 500 500 mg calcium (1,250 mg) Oral tab 1 tab twice a day 5. levothyroxine 125 mcg Oral cap 1 cap once daily 6. allopurinol 100 mg Oral tab 1 tab once daily 7. multivitamin Oral tab 1 tab daily 8. potassium chloride 10 mEq Oral cpER 1 cap once daily 9. Vitamin B-12 1,000 mcg Oral TbER daily 10. hyoscyamine sulfate 0.125 mg SL subl twice a day 11. Xarelto 20 mg oral tab 1 tab once daily 12. Flagyl 500 mg Oral tab 1 tab 3 times per day 13. Cipro 500 mg Oral tab 1 tab every 12 hours 14. furosemide 40 mg oral tab 1 tab once daily 15. megestrol 400 mg/10 mL (40 mg/mL) Oral susp 10 mL once daily 16. acetaminophen 325 mg Oral tab 2 tabs every 4 hours as needed 17. Milk of Magnesia Oral 10 mL as needed 18. Colace 100 mg oral cap 1 cap nightly 19. Dulcolax (bisacodyl) 10 mg Rectal supp 1 suppository once daily as needed - PMHx: Alcoholism; Atrial Fib; Bipolar disorder; CHF; CKD stage 3; Colitis; Dementia; Diverticulosis; GERD; hyperlipidemia; Hypertension; Hypothyroidism; - PSHx: Appendectomy; - The history from nurses notes was reviewed: and I agree with what is documented. - Social history: Smoking status: Patient states former smoker of tobacco. No barriers to communication noted, The patient speaks fluent Ukrainian, Speaks appropriately for age. - Family history: Not pertinent. - : The pt / caregiver states he / she is on anticoagulants: Xarelto Home medication list is obtained from the facility AUG. - Hospitalizations: : No recent hospitalization is reported. - Exposure Risk Screening:: None identified. - Immunization history:: All immunizations up-to-date. - Social history:: the patient is a non-smoker, the patient formerly used alcohol. Screenin:03 Screening information is obtained from the patient. Fall risk: No risks identified. pml Assistance ADL's: requires no assistance with activities of daily living. Abuse/DV Screen: The patient / caregiver reports he/she is: not in a situation that causes fear, pain or injury. Nutritional screening: No deficits noted. Advance Directives: Currently, there is a health care proxy, son. home support is adequate. Assessment: 15:03 General: see triage note. pml 16:20 General: Appears in no apparent distress, Behavior is appropriate for age, cooperative. pml Pain: Denies pain. Neurological: Level of Consciousness is awake, alert, Oriented to person, place, time. Cardiovascular: Capillary refill < 3 seconds. Respiratory: Airway is patent Respiratory effort is even, unlabored. GI: Abdomen is non- distended Bowel sounds present X 4 quads. Derm: Skin is pink, warm & dry. 17:49 General: Appears in no apparent distress, comfortable, Behavior is appropriate for age, pml cooperative. Pain: Denies pain. Neurological: Level of Consciousness is awake, alert, Oriented to person, place, time. Cardiovascular: Capillary refill < 3 seconds. Respiratory: Airway is patent Respiratory effort is even, unlabored. GI: Abdomen is non- distended. Derm: Skin is pink, warm & dry. Vital Signs: 15:01 Pulse 128 MON; Pulse Ox 97% ; pml 15:01 BP 139 / 73 (auto/); pml 15:03 BP 158 / 87; Pulse 135; Resp 18; Temp 97.5(O); Pulse Ox 99% on R/A; Weight 78.47 kg jrd (R); Height 65 in. (165.10 cm) (R); Pain 0/10; 15:31 Pulse 128 MON; Pulse Ox 97% ; pml 15:31 BP 130 / 67 (auto/); pml 16:01 Pulse 124 MON; Pulse Ox 97% ; pml 16:01 BP 114 / 61 (auto/); pml 16:31 Pulse 126 MON; Pulse Ox 97% ; pml 16:31 BP 101 / 58 (auto/); pml 17:50 BP 116 / 62; Pulse 126; Resp 18; Temp 97.5; Pulse Ox 96% ; Pain 0/10; pml 15:03 Body Mass Index 28.79 (78.47 kg, 165.10 cm) [facility] Vitals: 15:01 Log In Time N/A - ambulance arrival. pml ED Course: 14:49 Patient visited by Elma Jorgensen, Instructional Material Director. lbd 14:49 Salma aMrquez is Private Physician. lbd 14:49 Patient moved to Waiting lbd 14:49 Patient moved to 10 lbd 14:57 Triage Initiated pml 15:03 The patient / caregiver is instructed regarding the plan of care and ED course. Patient pml has correct armband on for positive identification. Bed in low position. Call light in reach. 15:04 Patient visited by Rico Wagner PCA. jrd 15:06 Patient visited by Sapphire Bird RN. pml 15:09 Patient visited by Sapphire Bird RN. pml 15:11 Jose Raul Easton MD is Attending Physician. pc 15:11 Patient visited by Jose Raul Easton MD. pc 15:21 Patient visited by Sapphire Bird RN. pml 15:21 Inserted peripheral IV: 20gauge IV in left antecubital area and blood collected. pml Patient tolerated the procedure well. 16:37 Patient visited by Sapphire Bird RN. pml 16:55 [facility] Payment Agreement was scanned into [employer] and attached to record. zo 17:05 Salma Marquez DO is Referral Physician. pc 17:05 Timo Solano MD is Referral Physician. pc 17:50 Discontinued lock intact, bleeding controlled, pressure dressing applied, No pml redness/swelling at site. No procedures done that require assistance. 06/27 11:39 Other: PROGRESS NOTE was scanned into [employer] and attached to record. gb Administered Medications: 06/26 16:55 Not Given (Physician Discretion): Metoprolol 5 mg IVP every 5 minutes; Hold for SBP < pml 100 or HR < 60. x3 17:00 Drug: carvedilol 3.125 mg Route: PO; pml Order Results: Lab Order: CBC with Diff; SPEC'M 06/26/16 15:19 Test: WHITE BLOOD COUNT; Value: 10.0; Range: 4.0-10.0; Units: K/mm3; Status: F Test: RED BLOOD COUNT; Value: 4.74; Range: 4.30-6.10; Units: M/mm3; Status: F Test: HEMOGLOBIN; Value: 15.6; Range: 14.0-18.0; Units: g/dl; Status: F Test: HEMATOCRIT; Value: 46.2; Range: 42.0-52.0; Units: %; Status: F Test: MEAN CORPUSCULAR VOLUME; Value: 97.5; Range: 80.0-96.0; Abnormal: Above high normal; Units: fl; Status: F Test: MEAN CORPUSCULAR HEMOGLOBIN; Value: 32.9; Range: 27.0-33.0; Units: pg; Status: F Test: MEAN CORPUSCULAR HGB CONC; Value: 33.7; Range: 32.0-36.5; Units: g/dl; Status: F Test: RED CELL DISTRIBUTION WIDTH; Value: 14.0; Range: 11.5-14.5; Units: %; Status: F Test: PLATELET COUNT, AUTOMATED; Value: 299; Range: 150-450; Units: k/mm3; Status: F Test: NEUTROPHILS %; Value: 73.1; Range: 36.0-66.0; Abnormal: Above high normal; Units: %; Status: F Test: LYMPH %; Value: 12.4; Range: 24.0-44.0; Abnormal: Below low normal; Units: %; Status: F Test: MONO %; Value: 9.0; Range: 0.0-5.0; Abnormal: Above high normal; Units: %; Status: F Test: EOS %; Value: 1.7; Range: 0.0-3.0; Units: %; Status: F Test: BASO %; Value: 0.4; Range: 0.0-1.0; Units: %; Status: F Test: LARGE UNSTAINED CELL %; Value: 3.5; Range: 0.0-4.0; Units: %; Status: F Test: NEUTROPHILS #; Value: 7.3; Range: 1.8-7.7; Units: K/mm3; Status: F Test: LYMPH #; Value: 1.2; Range: 1.5-4.5; Abnormal: Below low normal; Units: K/mm3; Status: F Test: MONO #; Value: 0.9; Range: 0.0-0.8; Abnormal: Above high normal; Units: K/mm3; Status: F Test: EOS #; Value: 0.2; Range: 0.0-0.50; Units: K/mm3; Status: F Test: BASO #; Value: 0.0; Range: 0.0-0.2; Units: K/mm3; Status: F Test: LARGE UNSTAINED CELL #; Value: 0.4; Range: 0.0-0.4; Units: K/mm3; Status: F Lab Order: [facility]; [facility] 06/26/16 15:19 Test: GLUCOSE, FASTING; Value: 129; Range: 83-110; Abnormal: Above high normal; Units: MG/DL; Status: F Test: BLOOD UREA NITROGEN; Value: 11; Range: 7-18; Units: MG/DL; Status: F Test: CREATININE FOR GFR; Value: 1.48; Range: 0.70-1.30; Abnormal: Above high normal; Units: MG/DL; Status: F Test: GLOMERULAR FILTRATION RATE; Value: 49.7; Range: >42; Status: F Test: SODIUM LEVEL; Value: 138; Range: 136-145; Units: MEQ/L; Status: F Test: POTASSIUM SERUM; Value: 3.8; Range: 3.5-5.1; Units: MEQ/L; Status: F Test: CHLORIDE LEVEL; Value: 104; Range: 98-107; Units: MEQ/L; Status: F Test: CARBON DIOXIDE LEVEL; Value: 21; Range: 21-32; Units: MEQ/L; Status: F Test: ANION GAP; Value: 13; Range: 8-16; Units: MEQ/L; Status: F Test: CALCIUM LEVEL; Value: 9.0; Range: 8.8-10.2; Units: MG/DL; Status: F Test Note: ; Units are mL/min/1.73 m2 Chronic Kidney Disease Staging per NKF: Stage I & II GFR >=60 Normal to Mildly Decreased Stage III GFR 30-59 Moderately Decreased Stage IV GFR 15-29 Severely Decreased Stage V GFR <15 Very Little GFR Left ESRD GFR <15 on AIR CONDITIONING SUPERVISOR Lab Order: Liver Profile; DASHAWN'Viviana 06/26/16 15:19 Test: AST/SGOT; Value: 26; Range: 15-37; Units: U/L; Status: F Test: ALT/SGPT; Value: 16; Range: 12-78; Units: U/L; Status: F Test: ALKALINE PHOSPHATASE; Value: 54; Range: 45-117; Units: U/L; Status: F Test: BILIRUBIN,TOTAL; Value: 0.8; Range: 0.2-1.0; Units: MG/DL; Status: F Test: BILIRUBIN,DIRECT; Value: 0.2; Range: 0.0-0.2; Units: MG/DL; Status: F Test: TOTAL PROTEIN; Value: 7.8; Range: 6.4-8.2; Units: GM/DL; Status: F Test: ALBUMIN; Value: 3.0; Range: 3.2-5.2; Abnormal: Below low normal; Units: GM/DL; Status: F Test: ALBUMIN/GLOBULIN RATIO; Value: 0.63; Range: 1.00-1.93; Abnormal: Below low normal; Status: F Lab Order: Lipase; SPEC'M 06/26/16 15:19 Test: LIPASE; Value: 157; Range: 73-393; Units: U/L; Status: F Outcome: 17:06 Discharge ordered by Provider. 17:50 Discharge Assessment: Patient awake, alert and oriented x 3. No cognitive and/or pml functional deficits noted. Patient verbalized understanding of disposition instructions. patient administered narcotics - no. The following High Risk Discharge criteria are identified: None. Discharged to fpc. Report called to [facility] gang supervisor pipe lines. Condition: stable. Discharge instructions given to fpc, Instructed on discharge instructions, follow up and referral plans. medication usage, Demonstrated understanding of instructions, medications, Pt was receptive of discharge instructions/ teaching. Prescriptions given X 1. No special radiology studies were completed. Property sent home with patient. 17:56 Patient left the ED. pml Signatures: Jose Raul Easton MD MD pc Elma Jorgensen, Instructional Material Director Unit lbd Dot Stewart, Rivas Reg Sharona Agustin Paulina, RN RN pml Rico Wagner, [employer] METHODS DEVELOPER jrmandy Corrections: (The following items were deleted from the chart) 15:09 15:03 Advance Directives: Currently, there is no health care proxy. pml pml Chart Complete MTDD
== END 2016-06-26 17:56 | disposition home or self-care (01) ==
LOC: M ED 14:48
DX: K80.20 Calculus of gallbladder without cholecystitis without obstruction (principal); I48.2 Chronic atrial fibrillation; F10.20 Alcohol dependence, uncomplicated; F31.9 Bipolar disorder, unspecified; I50.9 Heart failure, unspecified; I12.9 Hypertensive chronic kidney disease with stage 1 through stage 4 chronic kidney disease, or unspecified chronic kidney disease; N18.3 Chronic kidney disease, stage 3 (moderate); K52.9 Noninfective gastroenteritis and colitis, unspecified; F03.90 Unspecified dementia, unspecified severity, without behavioral disturbance, psychotic disturbance, mood disturbance, and anxiety; K57.30 Diverticulosis of large intestine without perforation or abscess without bleeding; K21.9 Gastro-esophageal reflux disease without esophagitis; E78.5 Hyperlipidemia, unspecified; E03.9 Hypothyroidism, unspecified; Z87.891 Personal history of nicotine dependence; Z79.01 Long term (current) use of anticoagulants; Z79.02 Long term (current) use of antithrombotics/antiplatelets; Z79.899 Other long term (current) drug therapy

== ENCOUNTER → 2016-06-26 | Outpatient (CLI) | payer MEDICARE, MEDICAID ==
--- NOTE | 2016-06-26 13:08 | REP ---
RIGHT UPPER QUADRANT ULTRASOUND: Real-time sonographic evaluation of the right upper quadrant is performed. Gallbladder is somewhat contracted and contains multiple stones. Gallbladder wall appears somewhat thickened measuring 6 mm in thickness maximally. There is no free fluid. There is no intrahepatic or extrahepatic biliary dilatation. Common bile duct measures 4 mm. Liver demonstrates no mass. Pancreas is not seen due to overlying bowel gas. Right kidney demonstrates no hydronephrosis with length of 9.4 cm. IMPRESSION: Somewhat contracted gallbladder with multiple gallstones and apparent mild gallbladder wall thickening. No biliary dilatation or free fluid. Findings may represent chronic cholecystitis. Signed by Jose Gimenez MD 06/26/2016 01:30 P
== END ==
LOC: M RAD 11:14
PROVIDERS: ATTEND Physician Assistant
DX: K80.20 Calculus of gallbladder without cholecystitis without obstruction (principal)

== ENCOUNTER → 2016-07-01 | Outpatient (CLI) | payer MEDICARE, MEDICAID ==
--- NOTE | 2016-07-01 10:09 | REP ---
Hepatobiliary scan: History: Chronic cholecystitis. Comparison is made with sonographic findings from June [address] findings from June 24, 2016. Technique: 6.6 mCi technetium 99m mebrofenin was injected and sequential anterior abdominal images were attempted. However, after the 10-minute image, the patient became agitated, in fact, physically lashed out. He refused any additional imaging and the study is incomplete. Findings: Initial hepatocellular parenchymal uptake phase is normal and homogeneous. The 10-minute image which was obtained demonstrates radiotracer accumulating in the extrahepatic biliary tree and in the duodenum which excludes complete biliary obstruction. No other finding. The gallbladder is not yet labeled. The exam is incomplete. Impression: Incomplete exam as above. Signed by Barrie Rosales MD 07/01/2016 10:43 A
== END ==
LOC: M RAD 08:50
PROVIDERS: ATTEND Internal Medicine
DX: K80.20 Calculus of gallbladder without cholecystitis without obstruction (principal)
CPT/HCPCS: 78226; A9537

== ENCOUNTER → 2016-07-15 | Outpatient (REF) | payer MEDICARE, MEDICAID ==
[2016-07-15 10:51] LABS: MEAN CORPUSCULAR HEMOGLOBIN 32.9 pg (27.0-33.0); MEAN CORPUSCULAR HGB CONC 33.4 g/dl (32.0-36.5); MEAN CORPUSCULAR VOLUME 98.5 fl (80.0-96.0); RED CELL DISTRIBUTION WIDTH 14.5 % (11.5-14.5); WHITE BLOOD COUNT 7.4 K/mm3 (4.0-10.0)
[2016-07-15 11:04] LABS: ANION GAP 8 MEQ/L (8-16); BLOOD UREA NITROGEN 15 MG/DL (7-18); CALCIUM LEVEL 9.5 MG/DL (8.8-10.2); CARBON DIOXIDE LEVEL 27 MEQ/L (21-32); CHLORIDE LEVEL 109 MEQ/L (98-107); CREATININE FOR GFR 0.94 MG/DL (0.70-1.30); GLOMERULAR FILTRATION RATE > 60.0 (>42); GLUCOSE, FASTING 87 MG/DL (83-110); POTASSIUM SERUM 4.3 MEQ/L (3.5-5.1); SODIUM LEVEL 144 MEQ/L (136-145)
== END ==
PROVIDERS: ATTEND Internal Medicine
DX: N18.9 Chronic kidney disease, unspecified (principal)

== ENCOUNTER → 2016-07-22 | Outpatient (CLI) | payer MEDICARE, MEDICAID ==
--- NOTE | 2016-07-22 23:49 | ECWPNPC ---
PATIENT NAME: MONICA HARTLEY : 1945 GENDER: MALE VISIT DATE: 07/22/2016 DISCHARGE DATE: 07/22/16 0000 VISIT LOCKED DATE TIME: PHYSICIAN: NINFA ALVES RESOURCE: NINFA ALVES REASON FOR APPOINTMENT 1. RADICULOPATHY HISTORY OF PRESENT ILLNESS FALL RISK SCREENIN71 Y/O [place] RESIDENT HERE PER REFFERAL FROM DR. LOVING.HE WENT TO SEE DR. LOVING A FEW WEEKS AGO FOR INITIAL EVALUATION OF RIGHT ABDOMINAL PAIN THOUGHT TO BE CHOLECYSTITIS.THIS WAS RULED OUT AND A SUGGESTION WAS MADE TO REFER HIM TO US.TODAY PATIENT DENIES ANY PAIN.DOES ADMIT OVER THE PAST 2 MOS HE HAS BEEN HAVING INFEQUENT EPISODES OF RIGHT LOWER ABDOMINAL PAIN THAT RADIATES TO LOW BACK.STATES HE HAS BEEN EATING AND SLEEPING FINE.REPORTING NORMAL BOWEL AND BLADDER FUNCTION.NO RECENT FEVER,ILLNESS OR WEIGHT LOSS. SCREENING :NO FALLS IN THE PAST YEAR PAIN SCREENING: PATIENT HAS A COMPLAINT OF ACUTE OR CHRONIC PAIN YES CURRENT MEDICATIONS TAKING LEVOTHYROXINE SODIUM 125 MCG TABLET 1 TABLET ON AN EMPTY STOMACH IN THE MORNING ORALLY ONCE A DAY TAKING LIDOCAINE 5 % OINTMENT EXTERNALLY TID TAKING METOPROLOL SUCCINATE ER 25 MG TABLET EXTENDED RELEASE 24 HOUR 1 TABLET ORALLY ONCE A DAY TAKING MEGESTROL ACETATE 400 MG/10ML SUSPENSION 1 ML ORALLY TWICE A DAY TAKING FUROSEMIDE 40 MG TABLET 1 TABLET ORALLY ONCE A DAY TAKING XARELTO 20 MG TABLET 1 TABLET WITH FOOD ORALLY ONCE A DAY TAKING ACETAMINOPHEN 325 MG TABLET 2 TABLETS NEEDED ORALLY EVERY 6 HRS TAKING MILK OF MAGNESIA 2400 MG/10ML SUSPENSION 5 ML ORALLY ONCE DAILY NEEDED TAKING DULCOLAX 10 MG SUPPOSITORY 1 SUPPOSITORY NEEDED RECTAL ONCE A DAY TAKING MIRTAZAPINE 15 MG TABLET 1 TABLET AT BEDTIME ORALLY ONCE A DAY TAKING ENEMA DISPOSABLE 19-7 GM/118ML ENEMA RECTAL ONCE DAILY NEEDED TAKING ALLOPURINOL 100 MG TABLET 1 TABLET ORALLY ONCE A DAY TAKING MULTI-DAY PLUS MINERALS - TABLET 1 TAB ORALLY DAILY TAKING POTASSIUM CHLORIDE 10 MEQ CAPSULE EXTENDED RELEASE 1 CAPSULE WITH FOOD ORALLY DAILY TAKING VITAMIN B-12 1000 MCG TABLET 1 TABLET ORALLY ONCE A DAY TAKING BACID - TABLET 1 TAB ORALLY BID TAKING VITAMIN D-3 1000 UNIT CAPSULE 2 CAP ORALLY BID TAKING OYSTER SHELL CALCIUM 500-400 MG-UNIT TABLET ORALLY BID TAKING COLACE 100 MG CAPSULE 2CAPSULE ORALLY DAILY PAST MEDICAL HISTORY RIGHT UPPER QUAD. 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 SURGICAL HISTORY RIGHT HEMICOLECTOMY 2011 APPENDECTOMY 1999 FAMILY HISTORY FATHER: , DIAGNOSED WITH HEART DISEASE MOTHER: , DIAGNOSED WITH HYPERTENSION, STROKE SON(S): ALIVE, DIAGNOSED WITH DIABETES, HYPERTENSION DAUGHTER(S): ALIVE SOCIAL HISTORY GENERAL: TOBACCO USE ARE YOU A:NONSMOKER ALCOHOL SCREENING POINTS0 INTERPRETATIONNEGATIVE RECREATIONAL DRUG USE DRUG USE?NO CAFFEINE CAFFEINE USE?YES HOW OFTEN AND HOW MUCH? 3 SODAS/DAY DIET: REGULAR. EXERCISE: NO REGULAR EXERCISE. MARITAL STATUS: .. CHURCH: NO TEMPLE BELIEFS THAT WOULD IMPACT HEALTH CARE. LANGUAGE: BRUNEIAN. LEARNING BARRIERS / SPECIAL NEEDS VISION IMPAIRED?YES :CORRECTIVE LENSES COGNITIVELY IMPAIRED?YES :LEARNING DISABILITY DEMENTIA LEARNING PREFERENCES?YES :TAPES/VIDEOS PAIN CLINIC PFS, CLERGY, PUBLIC HEALTH REFERRALS PFS REFERRAL NEEDED?NO CLERGY REFERRAL NEEDED?NO PUBLIC HEALTH REFERRAL NEEDED?NO ADVANCED DIRECTIVES HEALTH CARE PROXY?YES NAME OF HCP [facility]IL[facility]--[facility] CONTACT # FOR HCP [phone] (H) [phone](C) IF YES, DO YOU HAVE A COPY WITH YOU?YES DO YOU HAVE A DNR?YES IF YES, DO YOU HAVE A COPY WITH YOU?YES L[facility]ING WILL[facility]YES [facility]/MAJOR DIAGNOSTIC PROCEDURE ABOVE SURGERIES REVIEW OF SYSTEMS CONSTITUTIONAL: RECENT ILLNESS DENIES . ANY CHANGE IN YOUR MEDICAL CONDITION? NO . CHILLS NO . FEVER NO, DENIES . WEIGHT LOSS DENIES . INFECTION: DO YOU HAVE NEW INFECTIONS? NO . DO YOU HAVE HISTORY OF MRSA? NO . MUSCULOSKELETAL: ANY NEW PATTERNS OF PAIN OR NUMBNESS? NO . SYTEMIC LUPUS NO . JOINT PAIN DENIES . JOINT STIFFNESS DENIES . GASTROENTEROLOGY: BOWEL INCONTINENCE DENIES . ANY NEW CHANGE IN BOWEL CONTROL? NO . BARRETTS ESOPHAGUS NO . CIRRHOSIS NO . HEPATITIS NO . LIVER FAILURE NO . ACID REFLUX YES . BLOOD IN STOOL DENIES . UNEXPLAINED WEIGHT LOSS NO . GENITOURINARY: ANY NEW CHANGE IN BLADDER CONTROL? NO . IS THERE A CHANCE YOU COULD BE ? NO . HEMATOLOGY/LYMPH: DENIES . BLEEDING DISORDER DENIES . DO YOU TAKE ANY BLOOD THINNERS? (FOR EXAMPLE- COUMADIN, PLAVIX, AGGRENOX, PLATEL, PRADAXA, OR XARELTO) YES . WHEN WAS YOUR LAST DOSE? DATE: TIME: . LOW PLATELET COUNT NO . SICKLE CELL DISEASE NO . VON WILLIEBRANDS NO . FACTOR V LEIDEN NO . THALLASEMIA NO . ANEMIA YES . EASY BRUISING NO . NEUROLOGY: HAVE YOU FALLEN IN THE PAST 6 MONTHS? NO . ANY NEW EXTREMITY NUMBNESS OR WEAKNESS? NO . HEAD INJURY NO . DEMENTIA NO . CEREBRAL PALSY NO . MULTIPLE SCLEROSIS NO . DIZZINESS NO . HEADACHE NO, DENIES . SEIZURES DENIES . STROKES NO . VERTIGO NO . CARDIOLOGY: DO YOU HAVE A PACEMAKER OR DEFIBRILLATOR? NO . ANGINA NO . HEART ATTACK NO . HEART SURGERY NO . CONGESTIVE HEART FAILURE/FLUID OVERLOAD NO . CHEST PAIN NO, DENIES . HIGH BLOOD PRESSURE NO . IRREGULAR HEART BEAT AFIB . SHORTNESS OF BREATH DENIES . RESPIRATORY: HAVE YOU BEEN SICK IN THE PAST WEEK? NO . FEVER NO . FLU LIKE SYMPTOMS? NO . CPAP NO . BYPAP NO . ASTHMA NO . EMPHYSEMA NO . CHRONIC LUNG DISEASES NO . SHORTNESS OF BREATH ON EXERTION NO . COUGH NO, DENIES . SHORTNESS OF BREATH DENIES . SNORING NO . INTEGUMENTARY: DO YOU HAVE ANY RASHES OR OPEN SORES? NO . ALLERGIC/IMMUNO: ARE YOU ALLERGIC TO SHELLFISH OR IV DYE? NO . ANY NEW ALLERGIES? NO . PSYCHIATRIC: DO YOU HAVE THOUGHTS OF HURTING YOURSELF OR SOMEONE ELSE? NO . ARE YOU ABUSED, NEGLECTED, OR IN AN UNSAFE ENVIRONMENT? NO . ENDOCRINOLOGY: THYROID DISEASE DENIES . ARE YOU DIABETIC? NO . DIABETES DENIES . THYROID DISORDER HYPOTHYROID . OTHER: DO YOU NEED ANY PRESCRIPTIONS? NO . IF YES, PLEASE LIST: ____ . ANY NEW PROBLEMS WITH YOUR MEDICATIONS? NO . WHEN DID YOU LAST EAT? ____ . WHEN DID YOU LAST DRINK? ____ . WHAT DID YOU LAST DRINK? ____ . NAME OF PERSON DRIVING YOU HOME? ____ . DO YOU HAVE ANY OTHER QUESTIONS OR CONCERNS NO . HEENT: CHANGE IN VISION DENIES . LOSS OF HEARING DENIES . TROUBLE SWALLOWING DENIES . PSYCHOLOGY: ANXIETY DENIES . DEPRESSION DENIES . UROLOGY: URINARY INCONTINENCE DENIES . BLOOD IN URINE DENIES . REVIEWED BY: PROVIDER: NINFA DUMONT . VITAL SIGNS WT 181 LBS, HT 65 IN, BMI 30.12 INDEX, BP 145/84 MM HG, HR 108 /MIN, RR 18 /MIN, TEMP 99.2 F, OXYGEN SAT % 98, REVIEWED BY: IBRAHIMA. EXAMINATION GENERAL EXAMINATION: HEENT:HEAD:, NORMOCEPHALIC, EYES:, EYES NORMAL, NOSE:, NOSE CLEAR, THROAT: NORMAL. LUNGS:LUNG SOUNDS ARE CLEAR. HEART:IRREGULAR. ABDOMEN:SOFT AND NOT TENDER, NON-DISTENDED. MUSCULOSKELETAL:*. LUMBAR SACRAL SPINEMUSCLE STRENGTH TESTING 5/5 BILATERAL, PALPATION: NEGATIVE FOR PAIN OVER L/S SPINE. NEGATIVE FOR PAIN OVER L/S PARSPINALS. THORACIC SPINENEGATIVE FOR PAIN WITH PALPATION OF THORACIC SPINE. NEGATIVE FOR PAIN WITH PALPATION OF THORACIC PARASPINAL. CERVICALNEGATIVE FOR PAIN WITH PALPATION OF CERVICAL SPINE. NEGATIVE FOR PAIN WITH PALPATION OF CERVICAL PARASPINALS. NEGATIVE FOR PAIN WITH PALPATION OF TRAPEZIUS BILAT. SKIN:NORMAL, NO RASH. NEUROLOGIC EXAM:ALERT AND ORIENTED X 3, DTRS 1-2+ IN ALL 4 EXTREMITIES, DENIES UPPER EXTREMETIES SENSORY LOSS, DENIES LOWER EXTREMETIES SENSORY LOSS. DIAGNOSTIC: . ASSESSMENTS RIGHT LOWER QUADRANT ABDOMINAL PAIN - R10.31 (PRIMARY) PROCEDURES PN WORKMANS' COMP OPINION IN YOUR OPINION, WAS THE INCIDENT THAT THE PATIENT DESCRIBED THE COMPETENT MEDICAL CAUSE OF THIS INJURY/ILLNESS? YES ARE THE PATIENT'S COMPLAINTS CONSISTENT WITH HIS/HER HISTORY OF THE INJURY/ILLNESS? YES IS THE PATIENT'S HISTORY OF THE INJURY/ILLNESS CONSISTENT WITH YOUR OBJECTIVE FINDING? YES WHAT IS THE PERCENTAGE OF TEMPORARY IMPAIRMENT? MILD = 25% IS THE PATIENT WORKING? YES DOCTOR ON SITE: JACK ROMERO MD PROCEDURE CODES FA211 ESTABILISHED PATIENT [facility] CHARGE G8730 PAIN ASSESS POS TOOL F/U PLAN DOC G8427 DOC MEDS VERIFIED W/PT OR RE FOLLOW UP NO FURTHER F/U NECESSARY ELECTRONICALLY SIGNED BY JULIA DOBSON ON 07/22/2016 AT 02:55 PM EST DISCLAIMER : THIS IS A VISIT SUMMARY EXTRACTED FROM THE [employer] CHART. IT IS NOT A COPY OF THE [employer] PROGRESS NOTE. MTDD
== END ==
LOC: M PAIN 13:20
PROVIDERS: ATTEND Nurse Practitioner Family
DX: R10.31 Right lower quadrant pain (principal); Z79.899 Other long term (current) drug therapy

== ENCOUNTER → 2016-08-04 | Outpatient (REF) | payer MEDICARE, MEDICAID ==
[2016-08-04 11:16] LABS: ANION GAP 7 MEQ/L (8-16); BLOOD UREA NITROGEN 22 MG/DL (7-18); CALCIUM LEVEL 9.1 MG/DL (8.8-10.2); CARBON DIOXIDE LEVEL 29 MEQ/L (21-32); CHLORIDE LEVEL 109 MEQ/L (98-107); CREATININE FOR GFR 1.08 MG/DL (0.70-1.30); GLOMERULAR FILTRATION RATE > 60.0 (>42); GLUCOSE, FASTING 88 MG/DL (83-110); SODIUM LEVEL 145 MEQ/L (136-145)
[2016-08-04 11:20] LABS: VITAMIN B12 LEVEL 297 PG/ML (247-911)
== END ==
PROVIDERS: ATTEND Internal Medicine
DX: N18.3 Chronic kidney disease, stage 3 (moderate) (principal); M19.90 Unspecified osteoarthritis, unspecified site

== ENCOUNTER → 2016-08-11 | Outpatient (REF) | payer MEDICARE, MEDICAID ==
[2016-08-11 12:07] LABS: MEAN CORPUSCULAR HEMOGLOBIN 34.3 pg (27.0-33.0); MEAN CORPUSCULAR HGB CONC 34.5 g/dl (32.0-36.5); MEAN CORPUSCULAR VOLUME 99.5 fl (80.0-96.0); RED CELL DISTRIBUTION WIDTH 14.6 % (11.5-14.5); WHITE BLOOD COUNT 7.7 K/mm3 (4.0-10.0)
== END ==
PROVIDERS: ATTEND Internal Medicine
DX: E03.9 Hypothyroidism, unspecified (principal); N18.3 Chronic kidney disease, stage 3 (moderate)

== ENCOUNTER → 2016-09-08 | Outpatient (REF) | payer MEDICARE, MEDICAID | PROVIDERS: ATTEND Internal Medicine | DX: E03.9 Hypothyroidism, unspecified (principal) ==

== ENCOUNTER → 2016-09-14 | Outpatient (REF) | payer MEDICARE, MEDICAID ==
[2016-09-14 14:00] LABS: MEAN CORPUSCULAR HEMOGLOBIN 33.6 pg (27.0-33.0); MEAN CORPUSCULAR HGB CONC 33.6 g/dl (32.0-36.5); MEAN CORPUSCULAR VOLUME 100.2 fl (80.0-96.0); RED CELL DISTRIBUTION WIDTH 13.9 % (11.5-14.5); WHITE BLOOD COUNT 7.3 K/mm3 (4.0-10.0)
[2016-09-14 14:01] LABS: ALBUMIN 2.9 GM/DL (3.2-5.2); ALBUMIN/GLOBULIN RATIO 0.91 (1.00-1.93); BILIRUBIN,DIRECT 0.3 MG/DL (0.0-0.2); BILIRUBIN,TOTAL 0.9 MG/DL (0.2-1.0); CALCIUM LEVEL 8.7 MG/DL (8.8-10.2); CREATININE FOR GFR 1.27 MG/DL (0.70-1.30); GLOMERULAR FILTRATION RATE 59.3 (>42); POTASSIUM SERUM 3.9 MEQ/L (3.5-5.1); TOTAL PROTEIN 6.1 GM/DL (6.4-8.2)
== END ==
PROVIDERS: ATTEND Internal Medicine
DX: R10.9 Unspecified abdominal pain (principal); Z87.19 Personal history of other diseases of the digestive system

== ENCOUNTER → 2016-09-14 | Outpatient (CLI) | payer MEDICARE, MEDICAID ==
--- NOTE | 2016-09-14 14:17 | REP ---
Clinical: Acute abdominal pain. Comparison: Multiple examinations dating through 12/06/2013. Findings: Lung bases demonstrate chronic changes. Liver, spleen, pancreas, bilateral adrenal glands and kidneys are relatively normal / stable 1.3 cm complex left renal cyst unchanged compared to 2014. Cholelithiasis noted without evidence for acute cholecystitis. Inflammatory stranding surrounding the proximal sigmoid colon with adjacent small lymph nodes suggests acute colitis/diverticulitis. Remainder of the small and large bowel is without structure or acute inflammatory process. Chronic linear soft tissue extends from the proximal sigmoid to the left anterior pelvic wall likely representing sequelae of prior fistulous tract from diverticulitis and is visualized on prior examinations dating 09/07/2013. Pelvis demonstrates normal bladder and age appropriate prostate/seminal vesicles. No ascites. No free air. No retroperitoneal adenopathy. Atherosclerotic changes to the vasculature noted without aneurysm. Musculoskeletal structures demonstrate degenerative changes. Impression: 1. Findings suggest mild colitis/diverticulitis involving the proximal sigmoid colon. No associated bowel obstruction, perforation, drainable collection or abscess. 2. Cholelithiasis. 3. Stable 1.3 cm complex left renal cyst unchanged from 2014. Signed by Lorenzo Daniel MD 09/14/2016 02:08 P
== END ==
LOC: M RAD 13:23
PROVIDERS: ATTEND Physician Assistant
DX: K52.9 Noninfective gastroenteritis and colitis, unspecified (principal); K57.30 Diverticulosis of large intestine without perforation or abscess without bleeding; N28.1 Cyst of kidney, acquired; R10.9 Unspecified abdominal pain; Z87.19 Personal history of other diseases of the digestive system

== ENCOUNTER → 2016-09-30 | Outpatient (REF) | payer MEDICARE, MEDICAID ==
[2016-09-30 10:27] LABS: MEAN CORPUSCULAR HGB CONC 33.9 g/dl (32.0-36.5); MEAN CORPUSCULAR VOLUME 100.4 fl (80.0-96.0); RED CELL DISTRIBUTION WIDTH 13.7 % (11.5-14.5)
[2016-09-30 10:46] LABS: ANION GAP 10 MEQ/L (8-16); BLOOD UREA NITROGEN 11 MG/DL (7-18); CALCIUM LEVEL 8.5 MG/DL (8.8-10.2); CARBON DIOXIDE LEVEL 28 MEQ/L (21-32); CHLORIDE LEVEL 105 MEQ/L (98-107); CREATININE FOR GFR 1.12 MG/DL (0.70-1.30); GLOMERULAR FILTRATION RATE > 60.0 (>42); GLUCOSE, FASTING 152 MG/DL (83-110); POTASSIUM SERUM 3.5 MEQ/L (3.5-5.1); SODIUM LEVEL 143 MEQ/L (136-145)
== END ==
PROVIDERS: ATTEND Internal Medicine
DX: K57.92 Diverticulitis of intestine, part unspecified, without perforation or abscess without bleeding (principal)

== ENCOUNTER → 2016-11-10 | Outpatient (REF) | payer MEDICARE, MEDICAID ==
[2016-11-10 10:06] LABS: ANION GAP 8 MEQ/L (8-16); BLOOD UREA NITROGEN 13 MG/DL (7-18); CALCIUM LEVEL 8.5 MG/DL (8.8-10.2); CARBON DIOXIDE LEVEL 30 MEQ/L (21-32); CHLORIDE LEVEL 103 MEQ/L (98-107); CREATININE FOR GFR 0.93 MG/DL (0.70-1.30); GLOMERULAR FILTRATION RATE > 60.0 (>42); GLUCOSE, FASTING 130 MG/DL (83-110); POTASSIUM SERUM 3.7 MEQ/L (3.5-5.1); SODIUM LEVEL 141 MEQ/L (136-145)
[2016-11-10 10:13] LABS: MEAN CORPUSCULAR HEMOGLOBIN 34.1 pg (27.0-33.0); MEAN CORPUSCULAR HGB CONC 33.7 g/dl (32.0-36.5); MEAN CORPUSCULAR VOLUME 101.4 fl (80.0-96.0); RED CELL DISTRIBUTION WIDTH 13.9 % (11.5-14.5); WHITE BLOOD COUNT 5.8 K/mm3 (4.0-10.0)
== END ==
PROVIDERS: ATTEND Internal Medicine
DX: N18.9 Chronic kidney disease, unspecified (principal)

== ENCOUNTER → 2016-11-20 | Outpatient (REF) | payer MEDICARE, MEDICAID ==
[2016-11-20 12:24] LABS: MEAN CORPUSCULAR HEMOGLOBIN 33.7 pg (27.0-33.0); MEAN CORPUSCULAR HGB CONC 33.2 g/dl (32.0-36.5); MEAN CORPUSCULAR VOLUME 101.3 fl (80.0-96.0); RED CELL DISTRIBUTION WIDTH 13.7 % (11.5-14.5); WHITE BLOOD COUNT 6.2 K/mm3 (4.0-10.0)
[2016-11-20 12:33] LABS: ANION GAP 8 MEQ/L (8-16); BLOOD UREA NITROGEN 9 MG/DL (7-18); CALCIUM LEVEL 8.8 MG/DL (8.8-10.2); CARBON DIOXIDE LEVEL 32 MEQ/L (21-32); CHLORIDE LEVEL 101 MEQ/L (98-107); CREATININE FOR GFR 0.91 MG/DL (0.70-1.30); GLOMERULAR FILTRATION RATE > 60.0 (>42); GLUCOSE, FASTING 109 MG/DL (83-110); POTASSIUM SERUM 4.1 MEQ/L (3.5-5.1); SODIUM LEVEL 141 MEQ/L (136-145)
== END ==
PROVIDERS: ATTEND Internal Medicine
DX: R10.9 Unspecified abdominal pain (principal)

== ENCOUNTER → 2016-11-25 | Outpatient (REF) | payer MEDICARE, MEDICAID ==
[2016-11-25 10:38] LABS: MEAN CORPUSCULAR HEMOGLOBIN 33.1 pg (27.0-33.0); MEAN CORPUSCULAR HGB CONC 32.8 g/dl (32.0-36.5); MEAN CORPUSCULAR VOLUME 100.9 fl (80.0-96.0); WHITE BLOOD COUNT 5.6 K/mm3 (4.0-10.0)
[2016-11-25 10:51] LABS: ANION GAP 9 MEQ/L (8-16); BLOOD UREA NITROGEN 6 MG/DL (7-18); CALCIUM LEVEL 8.5 MG/DL (8.8-10.2); CARBON DIOXIDE LEVEL 29 MEQ/L (21-32); CHLORIDE LEVEL 104 MEQ/L (98-107); GLOMERULAR FILTRATION RATE > 60.0 (>42); GLUCOSE, FASTING 117 MG/DL (83-110); POTASSIUM SERUM 3.6 MEQ/L (3.5-5.1); SODIUM LEVEL 142 MEQ/L (136-145)
== END ==
PROVIDERS: ATTEND Internal Medicine
DX: R10.9 Unspecified abdominal pain (principal)

== ENCOUNTER → 2017-01-11 | Outpatient (REF) | payer MEDICARE, MEDICAID ==
[~2017-01-11] MED LIST changes: +ACET50TAOT PO; +BACITAB PO; -BACITAB3 PO; +CEPH500C PO; +CIPR-249 PO; -CIPR500T89 PO; +DIGI1TAB3 PO; +DIGO0.12 PO; -DOCU100C PO; +DOCU100C16 PO; +ENEMENE16 PR; -ENEMENE3 PR; +LASI40TA PO; +MEGE400SUS PO; +METR1TAB66 PO; -METR500T10 PO; +SULF1TAB23 PO; +SYNT137T7 PO; +TOPR25TA PO; -TRIC145T PO; +TRIC145T22 PO; +XARE20TA PO; +[UNRECOGNIZED DRUG - CODE] PO; -[UNRECOGNIZED DRUG - CODE] PO
[2017-01-11 14:07] LABS: BASO % 0.3 % (0.0-1.0); EOS # 0.1 K/mm3 (0.0-0.50); EOS % 1.9 % (0.0-3.0); LARGE UNSTAINED CELL # 0.2 K/mm3 (0.0-0.4); LARGE UNSTAINED CELL % 2.4 % (0.0-4.0); LYMPH % 24.8 % (24.0-44.0); MEAN CORPUSCULAR HEMOGLOBIN 33.5 pg (27.0-33.0); MEAN CORPUSCULAR HGB CONC 33.4 g/dl (32.0-36.5); MEAN CORPUSCULAR VOLUME 100.1 fl (80.0-96.0); MONO # 0.6 K/mm3 (0.0-0.8); MONO % 8.6 % (0.0-5.0); NEUTROPHILS # 4.5 K/mm3 (1.8-7.7); PLATELET COUNT, AUTOMATED 331 k/mm3 (150-450); RED CELL DISTRIBUTION WIDTH 13.7 % (11.5-14.5); WHITE BLOOD COUNT 7.3 K/mm3 (4.0-10.0)
[2017-01-11 14:43] LABS: ALBUMIN 2.9 GM/DL (3.2-5.2); ALBUMIN/GLOBULIN RATIO 0.76 (1.00-1.93); ALKALINE PHOSPHATASE 78 U/L (45-117); ALT/SGPT 15 U/L (12-78); ANION GAP 9 MEQ/L (8-16); AST/SGOT 17 U/L (15-37); BILIRUBIN,TOTAL 0.8 MG/DL (0.2-1.0); BLOOD UREA NITROGEN 11 MG/DL (7-18); CALCIUM LEVEL 8.4 MG/DL (8.8-10.2); CARBON DIOXIDE LEVEL 29 MEQ/L (21-32); CHLORIDE LEVEL 94 MEQ/L (98-107); CREATININE FOR GFR 1.01 MG/DL (0.70-1.30); GLOMERULAR FILTRATION RATE > 60.0 (>42); GLUCOSE, FASTING 119 MG/DL (83-110); POTASSIUM SERUM 3.6 MEQ/L (3.5-5.1); SODIUM LEVEL 132 MEQ/L (136-145); TOTAL PROTEIN 6.7 GM/DL (6.4-8.2)
== END ==
PROVIDERS: ATTEND Internal Medicine
DX: R10.9 Unspecified abdominal pain (principal)

== ENCOUNTER → 2017-02-10 | Outpatient (REF) | payer MEDICARE, MEDICAID | PROVIDERS: ATTEND Internal Medicine | DX: E03.9 Hypothyroidism, unspecified (principal) ==

== ENCOUNTER → 2017-03-30 | Outpatient (REF) | payer MEDICARE, MEDICAID ==
--- NOTE | 2017-03-30 15:49 | REP ---
Left knee series: Two views. History: Knee pain. Findings: AP and lateral views of the left knee demonstrate diffuse osteoporosis. There is some mild vascular calcification. Bones, joints and soft tissues are otherwise unremarkable. Impression: No acute bony abnormality. Mild patellar spurring. Vascular calcification. Diffuse osteopenia. Signed by Barrie Rosales MD 03/30/2017 05:30 P
--- NOTE | 2017-03-30 15:50 | REP ---
Left hip: Single view. History: Portable x-ray of the left hip for pain. Findings: AP view of the left hip demonstrate osteoarthritic changes and some greater trochanteric spurring. Some diffuse osteopenia. No fracture or bony destructive lesion is appreciated. Impression: No acute bony abnormality. Left hip osteoarthritis. Signed by Barrie Rosales MD 03/30/2017 05:30 P
== END ==
PROVIDERS: ATTEND Internal Medicine
DX: M16.12 Unilateral primary osteoarthritis, left hip (principal); M25.761 Osteophyte, right knee; M81.0 Age-related osteoporosis without current pathological fracture

== ENCOUNTER 2017-04-02 12:24 | Emergency (ER) | payer MEDICARE, MEDICAID ==
[~2017-04-02] VITALS: Ht 165.1 cm; Wt 83.9 kg
[~2017-04-02 12:24] MED LIST changes: -ACET50TAOT PO; -CEPH500C PO; -DIGI1TAB3 PO; -DIGO0.12 PO; -LASI40TA PO; -MEGE400SUS PO; -SULF1TAB23 PO; -SYNT137T7 PO; -TOPR25TA PO; -XARE20TA PO
[2017-04-02] MEDS ORDERED: NS 1,000 ML IV SCH (12:34)
[2017-04-02 12:56] LABS: BASO % 0.3 % (0.0-1.0); EOS # 0.2 10^3/uL (0.0-0.50); EOS % 1.8 % (0.0-3.0); IMMATURE GRANULOCYTE % 0.6 % (0-0); LYMPH # 1.9 10^3/uL (1.5-4.5); LYMPH % 21.4 % (24.0-44.0); MEAN CORPUSCULAR HEMOGLOBIN 33.3 pg (27.0-33.0); MEAN CORPUSCULAR HGB CONC 33.2 g/dl (32.0-36.5); MEAN CORPUSCULAR VOLUME 100.3 fl (80.0-96.0); MONO # 1.5 10^3/uL (0.0-0.8); MONO % 17.5 % (0.0-5.0); NEUTROPHILS # 5.1 10^3/uL (1.8-7.7); NEUTROPHILS % 58.4 % (36.0-66.0); PLATELET COUNT, AUTOMATED 364 10^3/uL (150-450); WHITE BLOOD COUNT 8.8 10^3/uL (4.0-10.0)
[2017-04-02] MEDS ORDERED: LASI40TA PO (13:02)
[2017-04-02] MEDS ORDERED: XARE20TA PO (13:02)
[2017-04-02] MEDS ORDERED: TOPR25TA PO (13:02)
[2017-04-02 13:17] LABS: OSMOLALITY SERUM 285 MOSM/KG (280-301)
[2017-04-02 13:24] LABS: ALBUMIN 2.7 GM/DL (3.2-5.2); ALBUMIN/GLOBULIN RATIO 0.73 (1.00-1.93); ALKALINE PHOSPHATASE 54 U/L (45-117); ALT/SGPT 18 U/L (12-78); ANION GAP 9 MEQ/L (8-16); AST/SGOT 15 U/L (15-37); BILIRUBIN,DIRECT 0.3 MG/DL (0.0-0.2); BILIRUBIN,TOTAL 0.8 MG/DL (0.2-1.0); BLOOD UREA NITROGEN 12 MG/DL (7-18); CALCIUM LEVEL 8.5 MG/DL (8.8-10.2); CARBON DIOXIDE LEVEL 29 MEQ/L (21-32); CHLORIDE LEVEL 100 MEQ/L (98-107); GLOMERULAR FILTRATION RATE > 60.0 (>42); GLUCOSE, FASTING 76 MG/DL (83-110); POTASSIUM SERUM 3.8 MEQ/L (3.5-5.1); SODIUM LEVEL 138 MEQ/L (136-145); TOTAL PROTEIN 6.4 GM/DL (6.4-8.2)
--- NOTE | 2017-04-02 13:38 | REP ---
CT Head without contrast HISTORY: Altered mental status COMPARISON: None An area of decreased attenuation is present in the left basal ganglia and centrum semiovale . This represents an old lacunar infarction. An area of decreased attenuation is present in the right cerebellum. This represents an old infarction. Areas of decreased attenuation are present in the periventricular and subcortical white matter. This represents small-vessel ischemic disease. There is no intraparenchymal hemorrhage, acute infarct, mass or midline shift. The ventricular system and cortical sulci as well as subarachnoid space in the posterior fossa are dilated consistent with mild volume loss. There is no extra cerebral collection. There is no fracture. The visualized sinuses are clear. IMPRESSION: 1. Old left basal ganglia lacunar infarction. 2. Old right cerebellar infarction. 3. Small vessel ischemic disease per 4. Mild volume loss. Signed by Arsenio Corona MD 04/02/2017 01:30 P
--- NOTE | 2017-04-02 14:07 | REP ---
PELVIS LEFT HIP: Three views. HISTORY: Trauma. FINDINGS: AP view of the pelvis shows an intact bony pelvic ring. No pelvic or sacral fracture is seen. There is some diffuse osteopenia. Trochanteric spurring and vascular calcification are noted. AP and frog-leg views of the left hip show osteoarthritic spurring at the hip. No fracture or subluxation is seen. IMPRESSION: Degenerative changes. No fracture seen. Signed by Barrie Rosales MD 04/02/2017 03:15 P
[2017-04-02] MEDS ORDERED: DIGOXIN INJ 0.5 MG/2 ML AMP (J1160) IV STA ×2 (14:53→17:16)
[2017-04-02] MEDS ORDERED: DIGOXIN INJ 0.5 MG/2 ML AMP (J1160) IV ONE (16:15)
[2017-04-02] MEDS ORDERED: METOPROLOL TART 50 MG TAB PO ONE (17:30)
[2017-04-02] MEDS ORDERED: DIGI1TAB3 PO (18:10)
[2017-04-02 18:37] VITALS: BP 131/74
--- NOTE | 2017-04-05 06:01 | ECGEPIP ---
Stationary ECG Study [facility] - ED Test Date: 2017-04-02 Pat Name: MONICA HARTLEY Department: Room: - Gender: M [employer]: : [id number] Requested By: Susan Chen Order Number: [id number] Reading MD: Jose Raul Easton Measurements Intervals [place] Rate: 125 P: SD: 0 QRS: 34 QRSD: 83 T: 6 QT: 339 QTc: 489 Interpretive Statements ATRIAL FIBRILLATION WITH RAPID VENTRICULAR RESPONSE LOW QRS VOLTAGE IN EXTREMITY LEADS MINIMAL ST DEPRESSION SIMILAR TO 12/06/13 Electronically Signed On 04-05-2017 6:00:50 EDT by Jose Raul Easton
[2017-04-23] MEDS ORDERED: MEGE400SUS PO (11:05)
[2017-04-23] MEDS ORDERED: ACET50TAOT PO (11:05)
[2017-04-23] MEDS ORDERED: CEPH500C PO (11:05)
[2017-04-23] MEDS ORDERED: SYNT137T7 PO (11:05)
[2017-04-28] MEDS ORDERED: SULF1TAB23 PO (08:29)
[2017-04-28] MEDS ORDERED: DIGO0.12 PO (08:29)
== END 2017-04-02 18:51 | disposition home or self-care (01) ==
LOC: M ED 12:24 → EDBD 12:24 → M ED 18:51
DX: I48.91 Unspecified atrial fibrillation (principal); K51.90 Ulcerative colitis, unspecified, without complications; M16.12 Unilateral primary osteoarthritis, left hip; Z79.899 Other long term (current) drug therapy
CPT/HCPCS: 36415; 70450; 73502; 80048; 80076; 81001; 82140; 82550; 82553; 83605; 83930; 84443; 84484; 85025; 87040; 87086; 93005; 93041; 94760; 96374; 96376; 99285; J1160

== ENCOUNTER → 2017-05-04 | Outpatient (REF) | payer MEDICARE, MEDICAID ==
[~2017-05-04] MED LIST changes: +ACET50TAOT PO; +CEPH500C PO; +DIGI1TAB3 PO; +DIGO0.12 PO; +LASI40TA PO; +MEGE400SUS PO; +SULF1TAB23 PO; +SYNT137T7 PO; +TOPR25TA PO; +XARE20TA PO
[2017-05-04 10:51] LABS: MEAN CORPUSCULAR HEMOGLOBIN 32.2 pg (27.0-33.0); MEAN CORPUSCULAR HGB CONC 32.6 g/dl (32.0-36.5); MEAN CORPUSCULAR VOLUME 98.6 fl (80.0-96.0); PLATELET COUNT, AUTOMATED 431 10^3/uL (150-450); RED CELL DISTRIBUTION WIDTH 14.9 % (11.5-14.5); WHITE BLOOD COUNT 8.1 10^3/uL (4.0-10.0)
[2017-05-04 11:26] LABS: CALCIUM LEVEL 9.2 MG/DL (8.8-10.2); CREATININE FOR GFR 1.32 MG/DL (0.70-1.30); GLOMERULAR FILTRATION RATE 56.6 (>42); POTASSIUM SERUM 3.7 MEQ/L (3.5-5.1)
== END ==
PROVIDERS: ATTEND Internal Medicine
DX: L02.211 Cutaneous abscess of abdominal wall (principal)

== ENCOUNTER → 2017-05-11 | Outpatient (REF) | payer MEDICAID, MEDICARE ==
[2017-05-11 10:37] LABS: MEAN CORPUSCULAR HEMOGLOBIN 33.4 pg (27.0-33.0); MEAN CORPUSCULAR HGB CONC 33.9 g/dl (32.0-36.5); MEAN CORPUSCULAR VOLUME 98.7 fl (80.0-96.0); PLATELET COUNT, AUTOMATED 428 10^3/uL (150-450); RED CELL DISTRIBUTION WIDTH 15.6 % (11.5-14.5); WHITE BLOOD COUNT 7.4 10^3/uL (4.0-10.0)
[2017-05-11 11:23] LABS: ANION GAP 10 MEQ/L (8-16); BLOOD UREA NITROGEN 11 MG/DL (7-18); CALCIUM LEVEL 9.8 MG/DL (8.8-10.2); CARBON DIOXIDE LEVEL 24 MEQ/L (21-32); CHLORIDE LEVEL 103 MEQ/L (98-107); CREATININE FOR GFR 1.07 MG/DL (0.70-1.30); DIGOXIN LEVEL 1.5 NG/ML (0.5-2.0); GLOMERULAR FILTRATION RATE > 60.0 (>42); GLUCOSE, FASTING 92 MG/DL (83-110); POTASSIUM SERUM 3.7 MEQ/L (3.5-5.1); SODIUM LEVEL 137 MEQ/L (136-145)
== END ==
PROVIDERS: ATTEND Internal Medicine
DX: I48.91 Unspecified atrial fibrillation (principal)

== ENCOUNTER → 2017-05-17 | Outpatient (CLI) | payer MEDICARE, MEDICAID ==
[~2017-05-17] MED LIST changes: +GASTROGRAFIN SOLUTION 30ML (Q9963) As Ordered ONE; +ISOVUE-370 76% 100ML VIAL (Q9967) As Ordered ONE
--- NOTE | 2017-05-17 14:36 | REP ---
Clinical: Abdominal pain with history of colitis and diverticulitis. Technique: Axial contrast enhanced images from the lung bases to the pubic symphysis using oral (per protocol) and 100 ml Isovue 370 intravenous contrast material with coronal and sagittal re-formations. Findings: Lung bases are clear. Visualized heart and pericardium normal. Liver, spleen, pancreas, bilateral adrenal glands and kidneys are normal. Incidental 2 cm left renal cyst remain stable. Cholelithiasis noted without CT evidence for acute cholecystitis. There is evidence for prior right hemicolectomy with anastomoses at the level of the hepatic flexure. No evidence for bowel obstruction or acute inflammatory process. Sigmoid diverticula noted without acute diverticulitis. Residual postsurgical changes at the left groin are considerably improved from prior examination and only a minuscule amount of residual fluid and gas is now identified. Correlation with physical examination is recommended to exclude continuous drainage and residual sinus tract. Pelvis demonstrates normal bladder and age appropriate prostate/seminal vesicles. No pelvic fluid or ascites. No free air. No adenopathy. Atherosclerotic changes of the aorta and vasculature noted without aneurysm or dissection. Skeletal structures demonstrate age-related degenerative changes without focal osseous abnormality. Impression: 1. Mild residual postsurgical changes in the region of the left groin and the previously noted multiloculated abscesses have essentially resolved. Clinical correlation is recommended to exclude sinus tract at the site. 2. Evidence for prior right hemicolectomy. Few sigmoid diverticula noted. No evidence for acute enterocolitis or diverticulitis. No bowel obstruction. 3. Cholelithiasis. 4. Further chronic changes as described above. No evidence for acute abdominopelvic pathology. Signed by Lorenzo Daniel MD 05/17/2017 02:27 P
== END ==
LOC: M RAD 11:14
PROVIDERS: ATTEND Physician Assistant
DX: Z87.19 Personal history of other diseases of the digestive system (principal)
CPT/HCPCS: 74177; Q9963; Q9967

== ENCOUNTER → 2017-05-24 | Outpatient (REF) | payer MEDICARE, MEDICAID ==
[~2017-05-24] MED LIST changes: -GASTROGRAFIN SOLUTION 30ML (Q9963) As Ordered ONE; -ISOVUE-370 76% 100ML VIAL (Q9967) As Ordered ONE
== END ==
PROVIDERS: ATTEND Internal Medicine
DX: Z11.2 Encounter for screening for other bacterial diseases (principal)

== ENCOUNTER 2017-05-26 16:34 | Inpatient (IN) | payer MEDICARE, MEDICAID ==
[2017-05-26 18:04] LABS: BASO # 0.1 10^3/uL (0.0-0.2); BASO % 0.3 % (0.0-1.0); EOS # 0.1 10^3/uL (0.0-0.50); EOS % 0.8 % (0.0-3.0); IMMATURE GRANULOCYTE # 0.1 10^3/uL (0-0); IMMATURE GRANULOCYTE % 0.6 % (0-0); LYMPH # 2.4 10^3/uL (1.5-4.5); LYMPH % 14.8 % (24.0-44.0); MEAN CORPUSCULAR HEMOGLOBIN 33.9 pg (27.0-33.0); MEAN CORPUSCULAR HGB CONC 32.8 g/dl (32.0-36.5); MEAN CORPUSCULAR VOLUME 103.2 fl (80.0-96.0); MONO # 1.5 10^3/uL (0.0-0.8); MONO % 9.7 % (0.0-5.0); NEUTROPHILS # 11.7 10^3/uL (1.8-7.7); NEUTROPHILS % 73.8 % (36.0-66.0); PLATELET COUNT, AUTOMATED 357 10^3/uL (150-450); RED CELL DISTRIBUTION WIDTH 17.7 % (11.5-14.5); WHITE BLOOD COUNT 15.8 10^3/uL (4.0-10.0)
[2017-05-26 18:15] LABS: INR 1.66
[2017-05-26 18:27] LABS: ALBUMIN 3.2 GM/DL (3.2-5.2); ALBUMIN/GLOBULIN RATIO 0.63 (1.00-1.93); ALKALINE PHOSPHATASE 105 U/L (45-117); ALT/SGPT 44 U/L (12-78); ANION GAP 10 MEQ/L (8-16); AST/SGOT 39 U/L (7-37); BILIRUBIN,DIRECT 0.3 MG/DL (0.0-0.2); BILIRUBIN,TOTAL 1.1 MG/DL (0.2-1.0); BLOOD UREA NITROGEN 40 MG/DL (7-18); CALCIUM LEVEL 10.1 MG/DL (8.8-10.2); CARBON DIOXIDE LEVEL 26 MEQ/L (21-32); CHLORIDE LEVEL 112 MEQ/L (98-107); CREATININE FOR GFR 2.78 MG/DL (0.70-1.30); GLUCOSE, FASTING 134 MG/DL (83-110); POTASSIUM SERUM 4.2 MEQ/L (3.5-5.1); SODIUM LEVEL 148 MEQ/L (136-145); TOTAL PROTEIN 8.3 GM/DL (6.4-8.2)
[2017-05-26] MEDS: ASPIRIN 325 MG TAB PO (20:13)
[2017-05-26] MEDS: METOPROLOL TART 25 MG TABLET PO (21:05)
[2017-05-26] MEDS ORDERED: VANCOMYCIN HCL 1,000 MG, VIAL MATE ADAPTER 1 EACH in D5W 250 ML IV (22:15)
[2017-05-26] MEDS ORDERED: PIPERACILLIN/TAZOBACTAM SOD 3.375 GM in APPROPRIATE DILUENT 1 EA IV (22:15)
[2017-05-26] MEDS ORDERED: ACETAMINOPHEN TAB 650MG DOSE (2X325MG) PO (22:45)
[2017-05-26] MEDS ORDERED: BISACODYL 10 MG SUPP PR (22:45)
[2017-05-26] MEDS ORDERED: MOM 30ML SUSPENSION UDC PO (22:45)
[2017-05-26] MEDS: ENOXAPARIN 80 MG/0.8 ML SYRINGE (J1650) SC (23:20)
[2017-05-26] MEDS: MIRTAZAPINE 15 MG TAB PO (23:21)
[2017-05-26] MEDS: NS 1,000 ML IV (23:21)
[2017-05-26] MEDS: DOCUSATE SODIUM 100 MG CAP PO (23:21)
[2017-05-26 23:46] LABS: ERYTHROCYTE SEDIMENTATION RATE 27 mm/hr (0-20)
[2017-05-27] MEDS: LEVOTHYROXINE 137MCG TABLET (0.137MG) PO (06:00)
[2017-05-27] MEDS ORDERED: HEPARIN SOD (PORCINE) 5000 UNITS/ML VIAL SQ (06:00)
[2017-05-27 06:34] LABS: MEAN CORPUSCULAR HEMOGLOBIN 33.4 pg (27.0-33.0); MEAN CORPUSCULAR HGB CONC 32.1 g/dl (32.0-36.5); MEAN CORPUSCULAR VOLUME 104.1 fl (80.0-96.0); PLATELET COUNT, AUTOMATED 340 10^3/uL (150-450); RED CELL DISTRIBUTION WIDTH 17.1 % (11.5-14.5); WHITE BLOOD COUNT 14.9 10^3/uL (4.0-10.0)
[2017-05-27 07:00] LABS: LACTIC ACID SEPSIS PROTOCOL 1.8 MMOL/L (0.4-2.0)
[2017-05-27 07:02] LABS: ANION GAP 9 MEQ/L (8-16); BLOOD UREA NITROGEN 41 MG/DL (7-18); CALCIUM LEVEL 9.5 MG/DL (8.8-10.2); CARBON DIOXIDE LEVEL 26 MEQ/L (21-32); CHLORIDE LEVEL 116 MEQ/L (98-107); CREATININE FOR GFR 2.67 MG/DL (0.70-1.30); GLOMERULAR FILTRATION RATE 25.1 (>42); GLUCOSE, FASTING 102 MG/DL (83-110); MAGNESIUM LEVEL 2.4 MG/DL (1.8-2.4); POTASSIUM SERUM 4.3 MEQ/L (3.5-5.1); SODIUM LEVEL 151 MEQ/L (136-145)
[2017-05-27 08:32] LABS: FREE T4 2.45 NG/DL (0.76-1.46)
[2017-05-27] MEDS: FEBUXOSTAT 40 MG TABLET (ULORIC) PO (10:53)
[2017-05-27] MEDS: MEGESTROL SUSP 400 MG/10 ML UDC PO (10:53)
[2017-05-27] MEDS: METOPROLOL TART 25 MG TABLET PO ×2 (10:55→20:48)
[2017-05-27] MEDS: DIGOXIN 0.125 MG TAB PO (10:56)
[2017-05-27] MEDS: MULTIVITAMINS/MINERALS THERAP 1 TAB PO (10:56)
[2017-05-27] MEDS: POTASSIUM CHLORIDE 10 MEQ SR TABLET PO (10:56)
[2017-05-27] MEDS: D5W 1,000 ML IV (14:32)
[2017-05-27] MEDS: ASPIRIN 325 MG TAB PO (14:32)
[2017-05-27] MEDS: ENOXAPARIN 80 MG/0.8 ML SYRINGE (J1650) SC (20:48)
[2017-05-27] MEDS: MIRTAZAPINE 15 MG TAB PO (20:48)
[2017-05-27] MEDS: DOCUSATE SODIUM 100 MG CAP PO (20:48)
[2017-05-28] MEDS: D5W 1,000 ML IV ×2 (00:05→09:39)
[2017-05-28] MEDS: LEVOTHYROXINE 112MCG TABLET (0.112MG) PO (05:06)
[2017-05-28 05:29] LABS: MEAN CORPUSCULAR HEMOGLOBIN 33.2 pg (27.0-33.0); MEAN CORPUSCULAR HGB CONC 32.2 g/dl (32.0-36.5); PLATELET COUNT, AUTOMATED 297 10^3/uL (150-450); RED CELL DISTRIBUTION WIDTH 16.8 % (11.5-14.5); WHITE BLOOD COUNT 12.8 10^3/uL (4.0-10.0)
[2017-05-28 05:40] LABS: ANION GAP 8 MEQ/L (8-16); BLOOD UREA NITROGEN 40 MG/DL (7-18); CALCIUM LEVEL 8.3 MG/DL (8.8-10.2); CARBON DIOXIDE LEVEL 26 MEQ/L (21-32); CHLORIDE LEVEL 112 MEQ/L (98-107); CREATININE FOR GFR 2.21 MG/DL (0.70-1.30); GLOMERULAR FILTRATION RATE 31.2 (>42); GLUCOSE, FASTING 98 MG/DL (83-110); MAGNESIUM LEVEL 2.1 MG/DL (1.8-2.4); POTASSIUM SERUM 3.7 MEQ/L (3.5-5.1); SODIUM LEVEL 146 MEQ/L (136-145)
[2017-05-28] MEDS: POTASSIUM CHLORIDE 10 MEQ SR TABLET PO (09:00)
[2017-05-28] MEDS: FEBUXOSTAT 40 MG TABLET (ULORIC) PO (09:34)
[2017-05-28] MEDS: MEGESTROL SUSP 400 MG/10 ML UDC PO (09:34)
[2017-05-28] MEDS: ASPIRIN 325 MG TAB PO (09:34)
[2017-05-28] MEDS: MULTIVITAMINS/MINERALS THERAP 1 TAB PO (09:37)
[2017-05-28] MEDS: METOPROLOL TART 25 MG TABLET PO ×2 (09:37→21:36)
[2017-05-28] MEDS: DIGOXIN 0.125 MG TAB PO (09:38)
[2017-05-28] MEDS: KCL 20MEQ IN D5W 1000ML 1,000 ML IV (14:16)
[2017-05-28] MEDS: CEFTRIAXONE SOD 1 GM in APPROPRIATE DILUENT 1 EA IV (14:16)
[2017-05-28] MEDS: MIRTAZAPINE 15 MG TAB PO (21:36)
[2017-05-28] MEDS: DOCUSATE SODIUM 100 MG CAP PO (21:36)
[2017-05-28] MEDS: ENOXAPARIN 80 MG/0.8 ML SYRINGE (J1650) SC (21:36)
[2017-05-29] MEDS: LEVOTHYROXINE 112MCG TABLET (0.112MG) PO (05:31)
[2017-05-29 05:45] LABS: MEAN CORPUSCULAR HEMOGLOBIN 33.9 pg (27.0-33.0); MEAN CORPUSCULAR HGB CONC 33.1 g/dl (32.0-36.5); MEAN CORPUSCULAR VOLUME 102.3 fl (80.0-96.0); PLATELET COUNT, AUTOMATED 277 10^3/uL (150-450); RED CELL DISTRIBUTION WIDTH 16.5 % (11.5-14.5); WHITE BLOOD COUNT 8.7 10^3/uL (4.0-10.0)
[2017-05-29 06:13] LABS: ANION GAP 8 MEQ/L (8-16); BLOOD UREA NITROGEN 32 MG/DL (7-18); CALCIUM LEVEL 8.4 MG/DL (8.8-10.2); CARBON DIOXIDE LEVEL 25 MEQ/L (21-32); CHLORIDE LEVEL 109 MEQ/L (98-107); CREATININE FOR GFR 1.62 MG/DL (0.70-1.30); GLOMERULAR FILTRATION RATE 44.7 (>42); GLUCOSE, FASTING 85 MG/DL (83-110); POTASSIUM SERUM 3.6 MEQ/L (3.5-5.1); SODIUM LEVEL 142 MEQ/L (136-145)
[2017-05-29] MEDS: KCL 20MEQ IN D5W 1000ML 1,000 ML IV (07:02)
[2017-05-29] MEDS: ASPIRIN 325 MG TAB PO (08:20)
[2017-05-29] MEDS: DIGOXIN 0.125 MG TAB PO (08:20)
[2017-05-29] MEDS: MULTIVITAMINS/MINERALS THERAP 1 TAB PO (08:20)
[2017-05-29] MEDS: METOPROLOL TART 25 MG TABLET PO ×2 (08:20→21:52)
[2017-05-29] MEDS: MEGESTROL SUSP 400 MG/10 ML UDC PO (08:21)
[2017-05-29] MEDS: FEBUXOSTAT 40 MG TABLET (ULORIC) PO (08:21)
[2017-05-29] MEDS: CEFTRIAXONE SOD 1 GM in APPROPRIATE DILUENT 1 EA IV (13:59)
[2017-05-29] MEDS: ENOXAPARIN 80 MG/0.8 ML SYRINGE (J1650) SC (21:51)
[2017-05-29] MEDS: DOCUSATE SODIUM 100 MG CAP PO (21:51)
[2017-05-29] MEDS: MIRTAZAPINE 15 MG TAB PO (21:52)
[2017-05-30] MEDS: KCL 20MEQ IN D5W 1000ML 1,000 ML IV (01:55)
[2017-05-30] MEDS: LEVOTHYROXINE 112MCG TABLET (0.112MG) PO (05:45)
[2017-05-30 06:29] LABS: MEAN CORPUSCULAR HGB CONC 33.5 g/dl (32.0-36.5); MEAN CORPUSCULAR VOLUME 98.6 fl (80.0-96.0); PLATELET COUNT, AUTOMATED 278 10^3/uL (150-450); RED CELL DISTRIBUTION WIDTH 15.9 % (11.5-14.5); WHITE BLOOD COUNT 7.5 10^3/uL (4.0-10.0)
[2017-05-30 06:46] LABS: ANION GAP 9 MEQ/L (8-16); BLOOD UREA NITROGEN 25 MG/DL (7-18); CALCIUM LEVEL 8.6 MG/DL (8.8-10.2); CARBON DIOXIDE LEVEL 23 MEQ/L (21-32); CHLORIDE LEVEL 105 MEQ/L (98-107); CREATININE FOR GFR 1.25 MG/DL (0.70-1.30); GLOMERULAR FILTRATION RATE > 60.0 (>42); GLUCOSE, FASTING 79 MG/DL (83-110); MAGNESIUM LEVEL 2.1 MG/DL (1.8-2.4); POTASSIUM SERUM 3.7 MEQ/L (3.5-5.1); SODIUM LEVEL 137 MEQ/L (136-145)
[2017-05-30] MEDS: MEGESTROL SUSP 400 MG/10 ML UDC PO (09:00)
[2017-05-30] MEDS: ASPIRIN 325 MG TAB PO (09:00)
[2017-05-30] MEDS: MULTIVITAMINS/MINERALS THERAP 1 TAB PO (09:00)
[2017-05-30] MEDS: CEFDINIR 300 MG CAP (OMNICEF) PO ×2 (09:21→20:57)
[2017-05-30] MEDS: DIGOXIN 0.125 MG TAB PO (09:22)
[2017-05-30] MEDS: FEBUXOSTAT 40 MG TABLET (ULORIC) PO (09:22)
[2017-05-30] MEDS: METOPROLOL TART 25 MG TABLET PO ×2 (09:22→20:57)
[2017-05-30] MEDS: ENOXAPARIN 80 MG/0.8 ML SYRINGE (J1650) SC (20:56)
[2017-05-30] MEDS: MIRTAZAPINE 15 MG TAB PO (20:57)
[2017-05-30] MEDS: DOCUSATE SODIUM 100 MG CAP PO (20:57)
[2017-05-31] MEDS: LEVOTHYROXINE 112MCG TABLET (0.112MG) PO (05:08)
[2017-05-31 05:42] LABS: PLATELET COUNT, AUTOMATED 330 10^3/uL (150-450); RED CELL DISTRIBUTION WIDTH 16.3 % (11.5-14.5); WHITE BLOOD COUNT 7.9 10^3/uL (4.0-10.0)
[2017-05-31 05:57] LABS: ANION GAP 11 MEQ/L (8-16); BLOOD UREA NITROGEN 16 MG/DL (7-18); CALCIUM LEVEL 9.1 MG/DL (8.8-10.2); CARBON DIOXIDE LEVEL 20 MEQ/L (21-32); CHLORIDE LEVEL 108 MEQ/L (98-107); CREATININE FOR GFR 1.28 MG/DL (0.70-1.30); GLOMERULAR FILTRATION RATE 58.6 (>42); GLUCOSE, FASTING 70 MG/DL (83-110); MAGNESIUM LEVEL 2.3 MG/DL (1.8-2.4); POTASSIUM SERUM 4.1 MEQ/L (3.5-5.1); SODIUM LEVEL 139 MEQ/L (136-145)
[2017-05-31] MEDS: MEGESTROL SUSP 400 MG/10 ML UDC PO (09:00)
[2017-05-31] MEDS: MULTIVITAMINS/MINERALS THERAP 1 TAB PO (09:00)
[2017-05-31] MEDS: CEFDINIR 300 MG CAP (OMNICEF) PO (09:00)
[2017-05-31] MEDS: METOPROLOL TART 25 MG TABLET PO (10:20)
[2017-05-31] MEDS: DIGOXIN 0.125 MG TAB PO (10:21)
[2017-05-31] MEDS: ASPIRIN 325 MG TAB PO (10:23)
[2017-05-31] MEDS: FEBUXOSTAT 40 MG TABLET (ULORIC) PO (10:25)
== END 2017-05-31 14:12 | DRG 683 ==
LOC: M PCU 05-27 15:21 → M MSPAV 05-29 14:13 → M ED 16:34 → M ED INP 22:03
DX: N17.9 Acute kidney failure, unspecified (principal); K63.2 Fistula of intestine; E44.0 Moderate protein-calorie malnutrition; E87.0 Hyperosmolality and hypernatremia; I50.32 Chronic diastolic (congestive) heart failure; N39.0 Urinary tract infection, site not specified; Z66 Do not resuscitate; B96.89 Other specified bacterial agents as the cause of diseases classified elsewhere; F03.90 Unspecified dementia, unspecified severity, without behavioral disturbance, psychotic disturbance, mood disturbance, and anxiety; E78.5 Hyperlipidemia, unspecified; I48.2 Chronic atrial fibrillation; E03.9 Hypothyroidism, unspecified; F31.9 Bipolar disorder, unspecified; Z90.49 Acquired absence of other specified parts of digestive tract; Z96.0 Presence of urogenital implants

== ENCOUNTER → 2017-05-26 | Outpatient (REF) | payer MEDICARE, MEDICAID ==
[2017-05-26 15:03] LABS: MEAN CORPUSCULAR HEMOGLOBIN 33.7 pg (27.0-33.0); MEAN CORPUSCULAR HGB CONC 32.7 g/dl (32.0-36.5); MEAN CORPUSCULAR VOLUME 103.1 fl (80.0-96.0); PLATELET COUNT, AUTOMATED 377 10^3/uL (150-450); RED CELL DISTRIBUTION WIDTH 17.2 % (11.5-14.5); WHITE BLOOD COUNT 16.5 10^3/uL (4.0-10.0)
[2017-05-26 15:29] LABS: CALCIUM LEVEL 9.8 MG/DL (8.8-10.2); CREATININE FOR GFR 2.4 MG/DL (0.70-1.30); GLOMERULAR FILTRATION RATE 28.4 (>42); POTASSIUM SERUM 4.8 MEQ/L (3.5-5.1)
== END ==
PROVIDERS: ATTEND Internal Medicine
DX: E86.0 Dehydration (principal)

== ENCOUNTER → 2017-06-01 | Outpatient (REF) ==
[~2017-06-01] MED LIST changes: +CEFD300CAP PO; +SYNT112T2 PO
[2017-06-01 17:54] LABS: CALCIUM LEVEL 8.9 MG/DL (8.8-10.2); CREATININE FOR GFR 1.32 MG/DL (0.70-1.30); GLOMERULAR FILTRATION RATE 56.6 (>42); POTASSIUM SERUM 4.6 MEQ/L (3.5-5.1)
[2017-06-01 17:57] LABS: MEAN CORPUSCULAR HEMOGLOBIN 33.8 pg (27.0-33.0); MEAN CORPUSCULAR HGB CONC 33.7 g/dl (32.0-36.5); MEAN CORPUSCULAR VOLUME 100.5 fl (80.0-96.0); PLATELET COUNT, AUTOMATED 378 10^3/uL (150-450); RED CELL DISTRIBUTION WIDTH 16.7 % (11.5-14.5); WHITE BLOOD COUNT 10.1 10^3/uL (4.0-10.0)
== END ==
PROVIDERS: ATTEND Internal Medicine
DX: R41.82 Altered mental status, unspecified (principal)

== ENCOUNTER → 2017-06-02 | Outpatient (REF) ==
[2017-06-02 10:46] LABS: MEAN CORPUSCULAR HEMOGLOBIN 33.3 pg (27.0-33.0); MEAN CORPUSCULAR HGB CONC 33.2 g/dl (32.0-36.5); MEAN CORPUSCULAR VOLUME 100.3 fl (80.0-96.0); PLATELET COUNT, AUTOMATED 370 10^3/uL (150-450); WHITE BLOOD COUNT 10.5 10^3/uL (4.0-10.0)
[2017-06-02 10:55] LABS: ANION GAP 9 MEQ/L (8-16); BLOOD UREA NITROGEN 14 MG/DL (7-18); CALCIUM LEVEL 8.9 MG/DL (8.8-10.2); CARBON DIOXIDE LEVEL 26 MEQ/L (21-32); CHLORIDE LEVEL 106 MEQ/L (98-107); CREATININE FOR GFR 1.11 MG/DL (0.70-1.30); GLOMERULAR FILTRATION RATE > 60.0 (>42); GLUCOSE, FASTING 79 MG/DL (83-110); SODIUM LEVEL 141 MEQ/L (136-145)
== END ==
PROVIDERS: ATTEND Internal Medicine
DX: I48.91 Unspecified atrial fibrillation (principal)

== ENCOUNTER → 2017-06-07 | Outpatient (REF) | payer MEDICARE, MEDICAID | PROVIDERS: ATTEND Internal Medicine | DX: K63.2 Fistula of intestine (principal); R41.82 Altered mental status, unspecified ==